=== PATIENT | female | born 1935 | race Caucasian/White ===

== ENCOUNTER 2016-09-19 16:30 | Inpatient (IN) | payer MEDICARE, OTHER ==
[~2016-09-19] VITALS: Ht 149.9 cm; Wt 45.1 kg
--- NOTE | ~2016-09-19 | DS ---
PATIENT'S NAME: [facility] AGE: 81 Y [address] ROOM: [place] [address] LOCATION: GPCU ADMIT DATE: 09/19/2016 Discharge Summary DISCHARGE DATE: 09/22/2016 FAMILY PHYSICIAN: Earnest Garber MD ATTENDING PHYSICIAN: Matt Eduardo PRINCIPAL DISCHARGE DIAGNOSIS: Metastatic cancer, unknown primary, possibly colon. SECONDARY DIAGNOSES: 1. Anemia secondary to blood loss. 2. Congestive heart failure. 3. Peripheral edema. 4. Abdominal pain. 5. Aortic stenosis. CONSULTATIONS: 1. Gastroenterology, Dr. Templeton, on 09/20/2016 for suspected colon cancer. 2. [facility] Cardiology due to CHF. 3. Oncology due to concern for metastatic cancer with imaging indicative of mets to the liver. 4. Palliative Care. RADIOGRAPHIC STUDIES: CT of the abdomen and pelvis with contrast showed mild to moderate bilateral effusions and diffuse metastatic disease in the liver, questionable thickening of the sigmoid colon, diverticulosis, single borderline enlarged retroperitoneal node, mild free fluid, mild to moderate bilateral pleural effusions, evidence of prior cholecystectomy and hysterectomy. BRIEF SUMMARY: Ms. Cooper is an 81-year-old, female who was admitted to our hospital after she presented to the [facility] with a 3- day history of dizziness associated with dyspnea on exertion. She reported 4- pillow orthopnea and increasingly limited ambulation and leg swelling and paroxysmal nocturnal dyspnea. She has been having pressure-like chest pain radiating to her back, precipitated by exertion and relieved by rest, and this has been going on for many weeks. The patient was admitted to inpatient. She is noted to have a history of aortic stenosis, for which she had undergone valvuloplasty in the past. She was gently hydrated and consultations proceeded as above. Because of evidence of a metastatic cancer, given a 40-pound weight loss in the last year, difficulty eating, poor appetite in addition due to the fragility of the patient's status and the fact that she probably would not PATIENT'S NAME: [facility] AGE: 81 Y [address] ROOM: [address] [address] LOCATION: GPCU ADMIT DATE: 09/19/2016 Discharge Summary DISCHARGE DATE: 09/22/2016 FAMILY PHYSICIAN: Earnest Garber MD ATTENDING PHYSICIAN: Matt Eduardo tolerate colonoscopy and further evaluation, after all the evaluations above, it was decided the patient is appropriate for palliative care and hospice. The patient was initially extremely resistant and fearful, but after good and consistent care from the Palliative Care nurse, evaluation by Dr. Live who is already familiar with the family, the patient was agreeable to be discharged home on hospice. Prior to discharge, she was transfused with 2 units of packed red cells, one on 09/20 and one on 09/22 for severe anemia. INSTRUCTIONS AT DISCHARGE: 1. Hospice was to be initiated as soon as possible. 2. Follow up with the PCP, Dr. Garber in a week. 3. Diet and activity as tolerated. MEDICATIONS AT TIME OF DISCHARGE: 1. Clopidogrel 75 mg p.o. daily. 2. Hydrocodone 1 tab every 4 hours p.r.n. 3. Metoprolol 25 mg p.o. daily. 4. Alprazolam 0.25 mg p.o. b.i.d. 5. Lasix 40 mg p.o. daily. 6. Fluticasone p.r.n. 7. Diclofenac topical gel for arthritis as needed. 8. Docusate 100 mg q.h.s. CONDITION AT DISCHARGE: Fair with a poor prognosis. This discharge required less than 30 minutes and was greatly facilitated by Dr. Live help. BIANCA LAWTON MD LM/modl /[id number] CC: Priscilla Live MD d: 10/22/16 0251 t: 11/01/161809, DISCHARGE SUMMARY
--- NOTE | ~2016-09-19 | HP ---
PATIENT'S NAME: NELI PAUL [facility] AGE: 81 Y [address] ROOM: [place] [address] LOCATION: GPCU ADMIT DATE: 09/19/2016 History & Physical DISCHARGE DATE: FAMILY PHYSICIAN: PHYSICIAN, UNKNOWN ATTENDING PHYSICIAN: GHULAM LOPEZ DATE OF SERVICE: CHIEF COMPLAINT: Dizziness. HISTORY OF PRESENT ILLNESS: An 81-year-old lady with a past medical history of aortic valvuloplasty in 2015, coronary artery disease, status post stenting, atrial fibrillation, status post ablation and pacemaker placement, anxiety, iron deficiency anemia who presented to [facility] with dizziness, which started 3 days ago on exertion. She did not experience any fall. On my encounter, she stated that she had been really short of breath for the past 3 days that she cannot lie down flat and have to use 4 pillows to make herself comfortable. Her ambulation is severely limited because of the shortness of breath; and in addition, she also complained of increasing leg swelling. She also endorsed having PND. On further inquiry, she said she has been having chest pain right across in the center, pressure-like, radiates to the back, brings on by exertion, and relieved by rest. It had been going on for many weeks now. Not associated with any diaphoresis. On further inquiry, she complained of weight loss as well as poor appetite and constipation. She denied having any burning on urination. REVIEW OF SYSTEMS: All the systems reviewed and were negative except what is mentioned in the HPI. PAST MEDICAL HISTORY: Coronary artery disease, status post stenting, hypertension, osteomyelitis, anxiety, aortic stenosis, status post valvuloplasty in July 2015, iron deficiency anemia, PAF on Xarelto, and history of DVT. MEDICATIONS: Medications are being reconciled right now. ALLERGIES: THE PATIENT IS ALLERGIC TO SULFA MEDICATIONS. SOCIAL HISTORY: Never a smoker. Lives in [place] with her son. PATIENT'S NAME: NELI PAUL [facility] AGE: 81 Y [address] ROOM: [place] [address] LOCATION: GPCU ADMIT DATE: 09/19/2016 History & Physical DISCHARGE DATE: FAMILY PHYSICIAN: PHYSICIAN, UNKNOWN ATTENDING PHYSICIAN: KHALID,PARMAR A FAMILY HISTORY: Family history was significant for lung cancer, myocardial infarction, as well as CVA in brother. PHYSICAL EXAMINATION: VITAL SIGNS: Blood pressure 153/76, 16, 82, and 96% on 2 L of oxygen. GENERAL: In mild acute distress due to shortness of breath. Alert and oriented x3. Hard of hearing. HEENT: Head: Atraumatic, normocephalic. Eyes: Nonicteric. No pallor. Oropharynx: Moist mucous membranes. CARDIOVASCULAR: S1, S2. Systolic ejection murmur at the aortic region radiating to the carotids, elevated JVD, +4 extremity edema. RESPIRATORY: Equal air entry bilaterally. No crepitation or expiratory wheezes heard. ABDOMEN: Soft, nontender, nondistended. Bowel sounds are present. EXTREMITIES: A 3+ extremity edema. No clubbing or cyanosis noted. Fungal infection of the toenail noted. PSYCH: Anxious and depressed mood. NEUROLOGIC: Cranial nerves 2 through 12 are intact. No motor or sensory deficits. MUSCULOSKELETAL: No muscle tenderness or swelling noted. LABORATORY DATA: EKG from the outside facility did show paced ventricular rhythm. One set of troponin was negative at [facility]. Chest x-ray was done, which was largely unremarkable for any acute findings. Physician over there was concerned for possibility of DVT and went ahead and do the CAT scan of the chest PE protocol, which was negative, but incidentally there was multiple mets noted in the liver. Further labs include hemoglobin of 8.4, white count of 12.9, and platelets 291. Sodium 142, potassium 4.8, chloride 109, bicarb 21, BUN 14, creatinine 0.9, calcium 9.0, BNP 564, and alkaline phosphatase was elevated at 375. AST and ALT were 93 and 45 respectively. Bilirubin is elevated at 1.2. INR was 2.6. The patient had a colonoscopy done in 2013. ASSESSMENT: 1. Exertional angina. 2. Congestive heart failure, acute exacerbation. 3. Severe aortic stenosis, symptomatic. 4. Severe protein-calorie malnutrition. 5. Numerous liver metastases. 6. Coronary artery disease. 7. Anxiety. 8. Iron-deficiency anemia. 9. Paroxysmal atrial fibrillation on Xarelto. PATIENT'S NAME: NELI PAUL [facility] AGE: 81 Y [address] ROOM: [place] [address] [facility] ADMIT DATE: 09/19/2016 History & Physical DISCHARGE DATE: FAMILY PHYSICIAN: PHYSICIAN, UNKNOWN ATTENDING PHYSICIAN: GHULAM LOPEZ PLAN: We are going to admit this patient to inpatient. Her dyspnea and heart failure is secondary to aortic stenosis for which she did undergo valvuloplasty in the past. At this point, we are going to diurese her gently given her good blood pressures and try to make her comfortable with some morphine as well. Cardiology consult will be placed and had been called. Given her liver metastases, we are going to get abdominal as well as pelvic CT scan to look for primary source of malignancy. Given the current scenario, we will get palliative care on-board early. On discussion with Cardiology, given that she has liver metastases, she would not be a candidate for valve replacement at this point. We will diurese her tonight and see how she does in the morning in terms of urine output and her clinical symptoms. We will get a procalcitonin levels given mildly elevated white count, but there is no focus of infection identified at this point. SCDs for DVT prophylaxis and plus she is on Xarelto. Code status was discussed with the patient and the patient is DNR/DNI. MD ROQUE QUEVEDO/kurtis /[id number] D: [id number] T: [id number] HISTORY & PHYSICAL
--- NOTE | ~2016-09-19 | CON ---
PATIENT'S NAME: NELI PAUL [facility] AGE: 81 Y [address] ROOM: [id number] [place], [place] [address] LOCATION: GPCU ADMIT DATE: 09/19/2016 Consultation DISCHARGE DATE: 09/22/2016 FAMILY PHYSICIAN: Earnest Garber MD ATTENDING PHYSICIAN: GHULAM LOPEZ DATE OF CONSULTATION: 09/20/2016 REFERRING PHYSICIAN: Hal Nash MD REFERRING PROVIDER: Florencia Shaw MD. REASON FOR CONSULTATION: Liver metastatic disease, rule out primary. HISTORY OF PRESENT ILLNESS: This is a pleasant elderly 81-year-old female with past medical history significant for aortic valvuloplasty in 2016; coronary artery disease, status post stenting; atrial fibrillation, severe aortic stenosis, status post ablation and pacemaker placement; anxiety; iron deficiency anemia. The patient presented to the [facility] with dizziness, that began 3 days ago on exertion. She did not experience any fall. She stated that she has had shortness of breath for the past few days. Her family is at bedside during our evaluation. They do state that she has lost approximately 40 pounds in the last year. She also complains of generalized "stomach problems" over the past year. She does have some abdominal discomfort that "feels like a vice around her abdomen." The patient states that this has been going on for numerous weeks. She also complains of a poor appetite as well as constipation. The patient denies any chest pain or chest pressure on evaluation. During workup on presentation, she did undergo a CT abdomen and pelvis on 09/20/2016 showing diffuse hepatic metastatic disease with a primary site is not certain, questionable thickening in the sigmoid colon with diverticulosis, single borderline enlarged retroperitoneal node, mild-to- moderate bilateral pleural effusions. We were asked to see in consultation for possible colonoscopy as well as liver metastatic disease. PAST MEDICAL HISTORY: Coronary artery disease, status post stenting; hypertension; osteomyelitis; anxiety; severe aortic stenosis, status post valvuloplasty in July 2015; iron deficiency anemia; PAF, on Xarelto; and history of DVT. PAST SURGICAL HISTORY: , cholecystectomy, cataract, cardiac stents x2, both knee scopes, peripheral stent to the right leg, pacemaker. No recent history of colonoscopy. PATIENT'S NAME: CHRISTIANO PAULA Riya [facility] AGE: 81 Y [address] ROOM: [place] [address] LOCATION: GPCU ADMIT DATE: 09/19/2016 Consultation DISCHARGE DATE: 09/22/2016 FAMILY PHYSICIAN: Earnest Garber MD ATTENDING PHYSICIAN: GHULAM LOPEZ SOCIAL HISTORY: The patient denies any smoking. She lives in [place] with her son. FAMILY HISTORY: Significant for lung cancer, myocardial infarction as well as CVA in the patient's brother. ALLERGIES: SULFA. CURRENT MEDICATIONS: Please refer to the medication administration record. REVIEW OF SYSTEMS: A 10-point review of systems was completed. All were negative except for those identified in the history of present illness. PHYSICAL EXAMINATION: GENERAL: Very pleasant, elderly 81-year-old female, lying in bed, who appears to be in no acute distress. VITAL SIGNS: Temperature 98.0, pulse 66, respirations 22, blood pressure 124/60, oxygen saturation 100% on room air. SKIN: [place], warm, and dry. No jaundice HEENT: Head is normocephalic and atraumatic. Pupils equal, round, and reactive to light. Sclerae clear. Nonicteric. Oral mucosa is pink and moist. No thyromegaly. NECK: Soft and supple. CARDIOVASCULAR: Regular. Normal S1, S2. Systolic ejection murmur heard. Elevated JVD. RESPIRATORY: Respirations even and unlabored. LUNGS: Clear to auscultation. ABDOMEN: Soft, nontender, nondistended. Bowel sounds positive x4 quadrants. MUSCULOSKELETAL: No muscle weakness or atrophy. EXTREMITIES: 3+ extremity edema noted to bilateral lower extremities. NEUROLOGICAL: Slightly anxious, though appropriate during our interview. LABS AND DIAGNOSTICS: White blood cell count 9.8, hemoglobin of 7.4, hematocrit of 24.6, and platelets of 223. Chemistry panel includes a glucose of 76, BUN of 13, creatinine 1.0, sodium 145, potassium 4.5, chloride of 113, CO2 of 23, procalcitonin is 0.25. CT abdomen and pelvis shows diffuse hepatic metastatic disease. Questionable thickening in the sigmoid colon. Single borderline enlarged retroperitoneal PATIENT'S NAME: NELI PAUL [facility] AGE: 81 Y [address] ROOM: [place] [id number] [facility] AD[facility] DATE: 09/19/2016 Consultation DISCHARGE DATE: 09/22/2016 FAMILY PHYSICIAN: Earnest Garber MD ATTENDING PHYSICIAN: GHULAM LOPEZ node. Mild free fluid. Mild to moderate bilateral pleural effusions. Cholecystectomy and hysterectomy. ASSESSMENT AND PLAN: Again, this is a very pleasant, elderly 81-year-old female, who was admitted with dizziness. The patient underwent a CT abdomen and pelvis showing a liver metastatic disease with unknown primary, likely possible colon primary as there was mild thickening noted in the colon on CT. CT scan was reviewed with Dr. Quang Gill as no obstructive lesion is noted per CT. At this time, we would appreciate Oncology consult regarding metastatic liver disease to evaluate whether colonoscopy would provide more information for treatment and diagnosis versus a possible liver biopsy. We will work in collaboration with Oncology pending their recommendations for further recommendations. Thank you for this consult and allowing us to participate in the care of this patient. ROGERS SALDIVAR APRN FOR HAL NASH MD MMF/modl /[id number] d: 09/20/16 2314 t: 09/24/16 1643, CONSULTATION REPORT
--- NOTE | ~2016-09-19 | CON ---
PATIENT'S NAME: NELI PAUL [facility] AGE: 81 Y [address] ROOM: [place] [address] LOCATION: GPCU ADMIT DATE: 09/19/2016 Consultation DISCHARGE DATE: FAMILY PHYSICIAN: Earnest Garber MD ATTENDING PHYSICIAN: GHULAM EDUARDO DATE OF CONSULTATION: 09/20/2016 LOCATION: [place] [address]. REFERRING PHYSICIAN: Ghulam Eduardo M.D. This is a Palliative Care referral for goals of care and patient and family support. HISTORY OF PRESENT ILLNESS: This 81-year-old female came in with shortness of breath and dizziness. She has a past medical history of aortic valvuloplasty in 2015 and coronary artery disease with stenting and atrial fibrillation, on Xarelto. She also has pacemaker placement, history of depression and anxiety. She presented to the [facility] with dizziness, increasing shortness of breath, and weight loss of about 40 pounds over the past year. She had been living at home with her son, but having more trouble breathing, not eating, had been using 4 pillows to make herself comfortable, but she was able to ambulate with a walker to the bathroom. She has also had increased swelling in her lower legs. No nausea or vomiting. Denies any pain or discomfort. Very fatigued with just walking back and forth to the bathroom. No history of constipation or diarrhea. Son states her stools have been darker than usual. Had been having abdominal pain, for which she has been taking a lot of hydrocodone per her son, but denies any abdominal pain now. PAST MEDICAL HISTORY: Coronary artery disease, status post stenting; hypertension; osteomyelitis; anxiety; aortic stenosis, status post valvuloplasty in July 2015; iron deficiency anemia; and PAF, on Xarelto; and history of DVT. CURRENT MEDICATIONS: 1. B12, 1000 mcg every 30 days. 2. Vilazodone HCL 40 mg daily. 3. Metoprolol 25 mg daily. 4. Furosemide 40 mg daily. 5. Plavix 75 mg daily. PATIENT'S NAME: NELI PAUL [facility] AGE: 81 Y [address] ROOM: [place] [address] LOCATION: GPCU ADMIT DATE: 09/19/2016 Consultation DISCHARGE DATE: FAMILY PHYSICIAN: Earnest Garber MD ATTENDING PHYSICIAN: GHULAM EDUARDO 6. Vitamin D 5000 units daily. 7. Atorvastatin 20 mg daily. 8. Alprazolam 0.25 mg b.i.d. 9. Acetaminophen or [place] 5/325 every 4 hours p.r.n. for pain. 10. Fluconazole 2 sprays daily p.r.n. 11. Diflucan sodium daily, topical. 12. Ipratropium bromide inhalations every 6 hours p.r.n. 13. MiraLAX 17 grams p.r.n. for constipation. 14. Morphine 1 mg every 3 hours IV. 15. Docusate sodium 100 mg b.i.d. ALLERGIES: SULFA. SOCIAL HISTORY: Lives at home with her son. Has 5 children, but has been estranged with all the other children except her son lives in [place]. She is a . about 5 years ago of lung cancer. She used to work at [employer]. FAMILY HISTORY: Significant for lung cancer, heart problems, and CVA in her brother. REVIEW OF SYSTEMS: A 10-point review of systems was done and is negative except as mentioned in HPI and listed below. RESPIRATORY: Some shortness of breath with exertion. No shortness of breath at rest. Had been unable to lie flat in bed. GI: Stools have been dark lately, no blood noted. Decreased appetite with weight loss of about 40 pounds over the past year. Unable to eat much, decreased in appetite. NEURO: Some dizziness and weakness and fatigue. PSYCH: Does have a history of severe depression and anxiety per her son. Positive for fatigue and loss of energy. PHYSICAL EXAMINATION: GENERAL: This is a frail 81-year-old female in no acute distress. VITAL SIGNS: Temperature 97.9, pulse 63, respirations 23, blood pressure 126/60, and O2 saturation is 97%. She is 4 feet and 11 inches. Weight is 93 pounds with a BMI of 19. GENERAL: Alert, oriented, in no acute distress. SKIN: Warm and dry. Color pale. HEENT: Normocephalic and atraumatic. Sclerae are nonicteric. Conjunctivae pale, pink. Mouth is pink and slightly dry. Nose, pink and moist without exudate. PATIENT'S NAME: NELI PAUL [facility] AGE: 81 Y [address] ROOM: [id number] [place] [address] [facility] AD[facility] DATE: 09/19/2016 Consultation DISCHARGE DATE: FAMILY PHYSICIAN: Earnest Garber MD ATTENDING PHYSICIAN: GHULAM EDUARDO LYMPHS: No cervical adenopathy or thyromegaly. RESPIRATORY: Clear and diminished bilaterally. Breath sounds even and regular. CARDIAC: S1 and S2. Elevated JVP. 4+ pitting edema in lower extremities bilaterally. ABDOMEN: Soft, nontender, and nondistended. Positive bowel tones. No hepatosplenomegaly. MUSCULOSKELETAL: Appropriate range of motion. Decreased strength in lower extremities. EXTREMITIES: No cyanosis. PSYCH: Anxious on current condition. Palliative performance scale is 40% mainly in bed, unable to do most activity, extensive disease, total care, reduced intake, and conscious level is full with periods of drowsiness. IMPRESSION: Dyspnea, emotional distress, and anorexia. PLAN: 1. Discussion of chronic condition. Met with the patient and discussed her understanding of talking with the senior treasury consultant and overall condition. I phoned son, Brian, who is her medical power of privacy attorney, and had the senior treasury consultant talk with son on patient's cardiology condition. Son came up later in the afternoon. Dr. Shaw, hospitalist, explained results of the CT of the abdomen and pelvis, prognosis, and overall condition. Answered questions and concerns. 2. Code status and advanced directives. The patient is currently a DO NOT RESUSCITATE/DO NOT INTUBATE. Son states the patient does have a copy of advance directive. Did obtain a copy of advance directive from the [facility]. Son is her medical power of privacy attorney and wishes are noted on the advance directive. Gave a copy to the patient's granddaughter, Christiane, whom she wanted to know her condition as well. If she had questions, patient stated that it was okay to give her information. GOALS OF CARE: 1. Talk with doctors on her current condition. 2. Talk with the oncologist to see if there is any possibility of any treatment goals of chemotherapy or biopsy. 3. She wants to see her grandchildren and would like to talk to her friend, Andie. Did contact Andie by phone and let her talk to the patient in [place], where she would like her son to come up and help her with some of the decision making. We did call son and he will try to get a ride to come up and be with the patient. Recommendations: Dyspnea, morphine p.r.n. was given and the patient had relieved shortness PATIENT'S NAME: NELI PAUL [facility] AGE: 81 Y [address] ROOM: [address] [address] LOCATION: GPCU ADMIT DATE: 09/19/2016 Consultation DISCHARGE DATE: FAMILY PHYSICIAN: Earnest Garber MD ATTENDING PHYSICIAN: GHULAM EDUARDO of rhett. EMOTIONAL DISTRESS: 1. Personal hide house supervisor from [place] was called and came up to see patient. 2. Active listening. OVERALL GOAL: The patient just wants to go home if no interventions and live the rest of her life with her son, who has helped her take care of her when he was dying on hospice. We will continue to support the patient and family and work on goals. Total time was 70 minutes. Thank you for allowing me to assist this patient and family. SHANON ONEAL NP FOR MD TRAV HAYES/kurtsi /[id number] d: 09/21/16 0043 t: 09/25/16 1044, CONSULTATION REPORT
--- NOTE | ~2016-09-19 | CON ---
PATIENT'S NAME: NELI APUL [facility] AGE: 81 Y [address] ROOM: [id number] [place], [place] [address] LOCATION: GPCU ADMIT DATE: 09/19/2016 Consultation DISCHARGE DATE: FAMILY PHYSICIAN: Earnest Garber MD ATTENDING PHYSICIAN: GHULAM LOPEZ REFERRING PHYSICIAN: Talisha Templeton MD REASON FOR CONSULTATION: The patient is an 81-year-old female, who has had approximately several days of increasing shortness of breath and dyspnea. She has also had some chest pain and increasing lower extremity edema. She has a history of an aortic valvuloplasty and coronary artery disease with stenting and also atrial fibrillation and a pacemaker placed. She presented to the intermittent ER for her shortness of breath and on admission was found to have a hemoglobin of 8.4, alkaline phosphatase was 375, AST 93, ALT was 45. Because of her anemia and her shortness of breath and chest pain, a PE protocol CT scan was performed. There is no evidence of a PE, however, there was multiple lesions in her liver that were noted on her scan. She was transferred here for further evaluation and treatment. On arrival here, the patient was taken off her Xarelto, which she is on for her atrial fibrillation and a remote history of a DVT. She was also found to have worsening of her anemia with a hemoglobin of 6.8. The patient has had approximately a 40-pound weight loss in the past year. Her son said last year, she was and this year she is not doing anything and just getting around with a walker around her house. He had noticed there is a significant decline in the past 3 to 6 months. The patient also states she has had some darker stools and she has had some abdominal bloating and indigestion for approximately 3 months. PAST MEDICAL HISTORY: 1. Congestive heart failure. 2. Aortic stenosis with valvuloplasty. 3. Coronary artery disease. 4. Anxiety disorder. 5. Atrial fibrillation, on Xarelto. 6. Reportedly a history of iron deficiency anemia. SOCIAL HISTORY: The patient's approximately 5 years ago with cancer. She lives with her son for the past 5 years. He is her primary caregiver and power of commercial litigation attorney. She has 3 other children, which the son reports that they have not seen their mom much if any in the past 5 years. She is currently not a smoker and she does not consume alcohol. FAMILY HISTORY: PATIENT'S NAME: NELI PAUL [facility] AGE: 81 Y [address] ROOM: [id number] [place], [place] [address] LOCATION: GPCU ADMIT DATE: 09/19/2016 Consultation DISCHARGE DATE: FAMILY PHYSICIAN: Earnest Garber MD ATTENDING PHYSICIAN: GHULAM LOPEZ She has family history of lung cancer, otherwise, unremarkable. REVIEW OF SYSTEMS: As per HPI. She denies any neurologic changes, otherwise, her 12-point review of systems is negative. PHYSICAL EXAMINATION: GENERAL: The patient is a very frail and tearful, at times sobbing, elderly female who is in no acute distress. IMAGING DATA: CT scan performed on 09/20 revealed multiple diffuse hepatic lesions consistent with metastatic disease as well as thickening in her sigmoid colon. IMPRESSION: 1. Likely metastatic disease in her liver, questionable sigmoid colon primary. 2. Anemia, likely multifactorial since her MCV is normal, although more than likely she has had some chronic blood loss with her Xarelto and had darker stools and questionable sigmoid colon lesions. RECOMMENDATIONS: I had an hour and a half talk with the patient and the family about her scans, her lab work, and the differential diagnosis. I did tell her that these lesions in her liver likely cancer and could very well have come from her colon although it is important to further diagnose her cancer with a biopsy of the liver and possibly even a colonoscopy. I told her that if this is a colon cancer oral Xeloda may be an option for her. I did tell her that it could slow down the growth of the cancer or could shrink it up, however, with her significant decrease in her performance status and her frailty, I do not think that she would likely tolerate oral Xeloda at a dose that would be helpful for her cancer. I told her that I would not be able to treat her unless we do a biopsy and strongly consider colonoscopy to get a primary site. She did ask how long she has to live, I told her it is completely a gas but she may have 3 months. However, I do worry that with her anemia and her significant decline in her performance status, it will likely be a shorter time period than that. She is adamant and tearful and stating that she just wants to go home. I told her that we could get her home possibly tomorrow with hospice and just keep her comfortable and I told her that if she was my mother then that would be what I would want for her. She actually did say that she does not want a biopsy, she just wants to go home and be comfortable. Her son who is her power of commercial litigation attorney agrees with this as well. I told her, I would try to see if I could further identify her anemia, I do PATIENT'S NAME: NELI PAUL [facility] AGE: 81 Y [address] ROOM: [place] [address] LOCATION: [facility] ADMIT DATE: 09/19/2016 Consultation DISCHARGE DATE: FAMILY PHYSICIAN: Earnest Garber MD ATTENDING PHYSICIAN: GHULAM LOPEZ think that her progressive anemia will likely cause her more issues and shorten her life expectancy, possibly more than the colon cancer itself. I will start her on some oral iron, if she tolerates that might help build up her blood and increase her performance status for the time. We will see if the hospice can come and evaluate the patient and hopefully get her home tomorrow, since that is where she really wants to be. JAHAIRA ESCUDERO MD CML/modl /[id number] d: 09/21/16 1309 t: 10/01/16 0735, CONSULTATION REPORT
[2016-09-19] MEDS ORDERED: XARELTO15 MG PO (17:53)
[2016-09-19] MEDS ORDERED: K-TAB ER20 MEQ PO (17:53)
[2016-09-19] MEDS ORDERED: VITAMIN D35000 UNI1 PO (17:53)
[2016-09-19] MEDS ORDERED: VIIBRYD40 MG PO (17:54)
[2016-09-19] MEDS ORDERED: VITAMIN B-1000 MCG/M IM (17:56)
[2016-09-19] MEDS ORDERED: LIPITOR20 M1 PO (17:56)
--- NOTE | 2016-09-19 17:56 | NUR ---
PT is 81 y/o female admit for chest pain/SOB for hospitalist. Pt alert and oriented x3 but extremely [place]. Doesn't hear at all out of R)ear. Resides at home with son. Pt came via ambulance from [facility]. Hx pacemaker,dizziness, angina,htn,murmur,stents x2,CAD,valve disease,heartburn,hiatal hernia, pneumonia,anemia,depression,anemia. Pt usually walks with walker at home. Allergy to spironolactone and sulfa. Red and yellow bracelets on.
[2016-09-19] MEDS ORDERED: LOPRESSOR25 MG PO (17:57)
[2016-09-19] MEDS ORDERED: HYDROCODON-ACE1 EAC4 PO (17:57)
[2016-09-19] MEDS ORDERED: PLAVIX75 MG PO (17:57)
[2016-09-19] MEDS ORDERED: FLONASE 50 MCG/16 GM NOSE (17:58)
[2016-09-19] MEDS ORDERED: LASIX40 MG PO (17:58)
[2016-09-19] MEDS ORDERED: XANAX0.25 MG PO (17:58)
[2016-09-19] MEDS ORDERED: COLACE100 MG PO (17:59)
[2016-09-19] MEDS ORDERED: VOLTAREN 1% GE100 GM TOP (17:59)
[2016-09-20 02:46] LABS: BILIRUBIN URINE NEGATIVE (NEGATIVE); BLOOD URINE NEGATIVE /UL (NEGATIVE); COLOR URINE YELLOW (YELLOW); GLUCOSE URINE NEGATIVE (NEGATIVE); KETONE URINE NEGATIVE (NEGATIVE); LEUKOCYTES URINE 25 /UL (NEGATIVE); NITRITE URINE NEGATIVE (NEGATIVE); PROTEIN URINE NEGATIVE (NEGATIVE); SPEC GRAVITY URINE 1.015 (1.003-1.035); TURBIDITY URINE CLEAR (CLEAR); UROBILINOGEN URINE 4 mg/dL (NORMAL)
[2016-09-20 02:59] LABS: BACTERIA URINE RARE (NEGATIVE); EPITHELIAL URINE 0-2 #/HPF (NEGATIVE); RBC URINE NEGATIVE #/HPF (NEGATIVE); RENAL EPITH URINE NEGATIVE #/HPF (NEGATIVE); WBC URINE 0-2 #/HPF (NEGATIVE)
--- NOTE | 2016-09-20 05:33 | NUR ---
Significant Event: Patient alert and oriented x3. Very hard of hearing. SBP 149-115. All other vital signs stable. On RA. Patient refused mata and lasixs for day shift. No complaints of chest pain. Cardiac enzymes negative. Bloody stool x1. Hematest per Dr. El positive. UA done. Patient SOB with activity. Morphine given x1 for air hunger and complaints of back pain. Little relief. [place] x1 given with more comfort to patient. Up to bedside commode with 1 assist pivot transfer. 2-3+ edema to bilateral legs. Calm and cooperative with all cares. Follow up: Pallitive to see today. Echo and Abdomenal Ultrasound today.
[2016-09-20 05:57] LABS: BASOPHIL % 0.4 %; EOSINOPHIL # 0.4 K/uL (0.0-0.5); HEMATOCRIT 22.3 % (30.0-46.0); IMMATURE GRANULOCYTE # 0.1 K/uL (0.0-0.3); IMMATURE GRANULOCYTE % 0.5 %; LYMPHOCYTE # 1.5 K/uL (0.8-4.0); LYMPHOCYTE % 15.7 %; MCH 29.6 pg (27.0-34.0); MCHC 30.5 gm/dL (32.0-36.5); MONOCYTE # 1.2 K/uL (0.0-1.0); MONOCYTE % 12.7 %; MPV 10.6 fl (9.4-12.4); NEUTROPHIL # (ANC) 6.5 K/uL (1.8-7.8); NEUTROPHIL % 66.7 %; NRBC % 0 /100WBC (0-0.00); PLATELET COUNT 223 K/uL (150-450); WBC 9.8 K/uL (4.0-11.0)
[2016-09-20 06:00] LABS: HEMOGLOBIN 6.8 g/dL (10.0-15.0)
[2016-09-20 06:11] LABS: ANION GAP 13.5 (10.0-19.0); CALCIUM 7.5 mg/dL (8.5-10.5); POTASSIUM 4.5 mMol/L (3.7-5.1)
[2016-09-20 08:09] LABS: HEMATOCRIT 24.6 % (30.0-46.0)
[2016-09-20 08:10] LABS: HEMOGLOBIN 7.4 g/dL (10.0-15.0)
--- NOTE | 2016-09-20 11:49 | NUR ---
Stopped by to review Siomara's chart and CHASITY Lindsay with [facility] was there. She tells me that Siomara lives at home with her son in [place] and it is her plan to return there. Doctors have told Siomara that she is not a surgical canidate so Angélica has brought up the option of her going home with support from [facility] to both Siomara and her son, Brian. Angélica tells me that she has talked with Brian today and he is trying to find a ride up to the hospital to see his mom later this afternoon. No for sure decision has been made about [facility] coming on board yet, but Angélica did tell me that she faxed the initial referral into them this morning and they will be able to accept when she is ready to dismiss if that is the route that Siomara is wanting to go. Angélica states she has talked with Siomara this morning a few times and she is wanting to hear from doctors first before saying she is fine with going home with Hospice. Angélica tells me she will update me later this afternoon in reguards to what she decides. She was also going to check to make sure the [facility] could accept over the weekend if Siomara was cleared for discharge at that time. In reviewing Siomara's chart, I do see that she lives at home with son and uses a FWW to get around with at home. CM to continue to follow and assist.
--- NOTE | 2016-09-20 17:03 | NUR ---
Shift Summary: Patient alert and oriented x 3. Patient very hard of hearing. Patient very emotional today. Palliative care seen today. Family at bedside. Patient up and to the bathroom with walker and gait belt. Bilateral lower extremities 2+ edema. Lungs clear and diminished. Hold xarelto per Dr. Anu. [place] ([facility]) okay to give information to. 490 total intake; 675 total output. HR paced at 60. 1 unit pRBC's infusing now. Follow up: Oncology to see in AM.
--- NOTE | 2016-09-21 04:22 | NUR ---
Significant Event: PATIENT A/0 X 3, CONTINUES TO BE VERY DEPRESSED ABOUT HER CURRENT SITUATION. ALL VSS ON RA, AFEBRILE. OUT OF BED VERY FREQUENTLY TO BEDSIDE COMMODE. DOES FALL BACK ASLEEP EASILY. NO COMPLAINTS OF PAIN. Follow up: ONCOLOGY CONSULT AND POSSIBLE LIVER BIOPSY AT SOME POINT.
[2016-09-21 05:56] LABS: BASOPHIL % 0.4 %; EOSINOPHIL # 0.4 K/uL (0.0-0.5); EOSINOPHIL % 4.1 %; HEMATOCRIT 24.5 % (30.0-46.0); IMMATURE GRANULOCYTE # 0.1 K/uL (0.0-0.3); IMMATURE GRANULOCYTE % 0.7 %; LYMPHOCYTE # 1.6 K/uL (0.8-4.0); LYMPHOCYTE % 16.6 %; MONOCYTE # 1.3 K/uL (0.0-1.0); MONOCYTE % 13.8 %; MPV 10.9 fl (9.4-12.4); NEUTROPHIL # (ANC) 6.2 K/uL (1.8-7.8); NEUTROPHIL % 64.4 %; NRBC % 0 /100WBC (0-0.00); PLATELET COUNT 213 K/uL (150-450); RBC 2.67 M/uL (3.00-5.00); WBC 9.7 K/uL (4.0-11.0)
[2016-09-21 06:02] LABS: HEMOGLOBIN 7.9 g/dL (10.0-15.0); MCH 29.6 pg (27.0-34.0); MCHC 32.2 gm/dL (32.0-36.5); MCV 91.8 fl (83.0-98.0)
[2016-09-21 06:09] LABS: ALBUMIN 2.1 gm/dL (3.5-5.0); ANION GAP 16.2 (10.0-19.0); CALCIUM 7.7 mg/dL (8.5-10.5); CREATININE 0.9 mg/dL (0.5-1.1); PHOSPHORUS 3.1 mg/dL (2.5-4.9); POTASSIUM 4.2 mMol/L (3.7-5.1)
--- NOTE | 2016-09-21 19:24 | NUR ---
PATIENT UP TO BR W/ 1 ASSIST. PATIENT USED CALL LIGHT APPROPRIATELY, FAMILY AT BEDSIDE MOST OF DAY. VSS, SATS HIGH 90'S ON RA. PLAN FOR DISMISSAL TOMORROW ON HOSPICE.
--- NOTE | 2016-09-22 04:10 | NUR ---
Significant Event: Patient A/Ox3. VSS on RA. Up minimal assist ot bathroom. Patient is very tearful. Dr. Shaw spoke to the patient about administering another unit of PRBC last night, but patient requested that she wait until morning. Scheduled for 0800. Unit of blood ready in lab when needed. Follow up: Hang blood this morning. Home today or tomorrow on hospice
--- NOTE | 2016-09-22 17:55 | NUR ---
DISMISSAL NOTE: AOx3, tearful today re: diagnosis and leaving behind loved ones and her cats. Tachypneic at times, SBP 120s-130s, VS otherwise WNL on room air. Decreased appetite but did eat some breakfast. Dressing remains intact to R) upper arm skin tear. 1 unit PRBCs infused as ordered. Ambulates to restroom with 1PA and tolerates well. BM x1. Family arrived and were comforting to patient. Visited by phone with Angélica from [facility] regarding patient's dismissal time. Patient stated repeatedly she wanted to go home. Family states they are comfortable taking her home. Dressed and transported via wheelchair.
== END 2016-09-22 14:59 | disposition hospice, home (50) | DRG 302 ==
LOC: GPCU 16:41
PROVIDERS: Family Medicine; Internal Medicine; ADMIT Internal Medicine
PROC: 30233N1 Transfusion of Nonautologous Red Blood Cells into Peripheral Vein, Percutaneous Approach (ICD-10-PCS; principal; 2016-09-20)
DX: I25.118 Atherosclerotic heart disease of native coronary artery with other forms of angina pectoris (principal); E43 Unspecified severe protein-calorie malnutrition; C78.7 Secondary malignant neoplasm of liver and intrahepatic bile duct; I11.0 Hypertensive heart disease with heart failure; I48.0 Paroxysmal atrial fibrillation; I50.9 Heart failure, unspecified; C80.1 Malignant (primary) neoplasm, unspecified; Z68.1 Body mass index [BMI] 19.9 or less, adult; F41.9 Anxiety disorder, unspecified; D50.9 Iron deficiency anemia, unspecified; I35.0 Nonrheumatic aortic (valve) stenosis; M19.90 Unspecified osteoarthritis, unspecified site; Z95.0 Presence of cardiac pacemaker; Z66 Do not resuscitate; Z51.5 Encounter for palliative care
CPT/HCPCS: J1940; J2270; J3420; J7030; J7050; P9016

== ENCOUNTER 2016-09-30 13:30 | Inpatient (IN) | payer MEDICARE, OTHER ==
[~2016-09-30] VITALS: Ht 139.7 cm; Wt 45.1 kg
--- NOTE | ~2016-09-30 | CON ---
PATIENT'S NAME: NELI PAUL [facility] AGE: 81 Y [address] ROOM: [place] [address] LOCATION: TU ADMIT DATE: 09/30/2016 Consultation DISCHARGE DATE: 10/04/2016 FAMILY PHYSICIAN: Earnest Garber MD ATTENDING PHYSICIAN: Rogelio Cheung DATE OF CONSULTATION: 10/03/2016 LOCATION: [facility] 62. REFERRING PHYSICIAN: Jhonatan El MD This is a palliative care referral for patient and family support and goals of care. HISTORY OF PRESENT ILLNESS: This 81-year-old female was admitted on 09/30/2016 due to falling at home and having left hip pain. She had previously been in the hospital and admitted on 09/19/2016 and was found to have multiple lesions on her liver. She has a past medical history of aortic valvuloplasty in 2015, severe coronary artery disease with stenting, and atrial fibrillation. She has a history of anxiety and depression, had a 40-pound weight loss. CT was done, and that is when she was found to have multiple lesions on her liver. Her liver enzymes were elevated. Alkaline phosphatase was 375, AST was 93, and ALT was 45. The patient had fallen where she had been living at home with her son and was on hospice care. Son and the patient had decided to have hip repaired. The patient had a recent decline in condition. Today, on date of consult, white count had elevated and more lethargic, and she was hypotensive. With the patient's previous history of liver metastasis, possible colon cancer, and recent hospice, goals of care were needed to be discussed with the family. The patient currently is lying in bed. Does open eyes, but no verbal response. No discomfort noted. No grimacing or moaning. No shortness of breath. No nausea or vomiting. Family at bedside. PAST MEDICAL HISTORY: Coronary artery disease, status post stenting; hypertension; osteomyelitis; anxiety; aortic stenosis, status post valvuloplasty in July 2015; iron deficiency anemia; PAF, on Xarelto; and history of DVT. PATIENT'S NAME: NELI PAUL [facility] AGE: 81 Y [address] ROOM: [place] [address] LOCATION: [facility] ADMIT DATE: 09/30/2016 Consultation DISCHARGE DATE: 10/04/2016 FAMILY PHYSICIAN: Earnest Garber MD ATTENDING PHYSICIAN: Rogelio Cheung MEDICATIONS: 1. Vilazodone hydrochloride 40 mg daily. 2. Xanax 0.25 mg b.i.d. 3. Dicyclomine 20 mg a.c. and h.s. 4. Tylenol p.o. 500 mg every 6 hours p.r.n. 5. Acetaminophen 500 mg q.i.d. 6. Plavix 75 mg daily. 7. Docusate sodium 100 mg b.i.d. 8. Lovenox 30 mg subcu. 9. Famotidine 20 mg daily. 10. Zosyn 3.375 mg IV b.i.d. 11. Bisacodyl 10 mg rectally daily p.r.n. constipation. 12. Haloperidol 1 mg every 6 hours p.r.n. 13. Hyoscyamine 0.125 mg sublingual every 4 hours p.r.n. increased respiratory secretions. 14. Lorazepam 0.5 mg p.o. sublingual every 6 hours p.r.n. anxiety. 15. Magnesium hydroxide 30 mg p.o. p.r.n. constipation. 16. Morphine sulfate 5 mg p.o. every 3 hours p.r.n. dyspnea or pain. 17. Nitroglycerin 0.4 mg sublingually every 4 hours p.r.n. chest pain. 18. Ondansetron 4 mg IV every 6 hours p.r.n. nausea. 19. MiraLAX 17 g p.o. every day. ALLERGIES: SULFA. SOCIAL HISTORY: She had been living at home with her son. Has 5 children. Son is her medical power of attorney general. She is . 5 years ago of lung cancer. Used to work at [employer] FAMILY HISTORY: Lung cancer, heart problems, and CVA. REVIEW OF SYSTEMS: Ten-point review of systems was done and is negative except as mentioned in the HPI. VITAL SIGNS: 98.1, pulse 64, respirations 17, blood pressure 91/54, and O2 saturation is 95%. Weight is 99 pounds, and she is 4 feet 11 inches. GENERAL: Lethargic, in no acute distress. SKIN: Warm and dry. Color pale. HEENT: Head: Normocephalic and atraumatic. Sclerae are nonicteric. Conjunctivae are pale, pink. Mouth is pink and moist without exudate. LYMPHATIC: No cervical adenopathy or thyromegaly. RESPIRATORY: Clear to auscultation bilaterally. Breath sounds even and PATIENT'S NAME: NELI PAUL [facility] AGE: 81 Y [address] ROOM: [place] [address] LOCATION: [facility] ADMIT DATE: 09/30/2016 Consultation DISCHARGE DATE: 10/04/2016 FAMILY PHYSICIAN: Earnest Garber MD ATTENDING PHYSICIAN: Rogelio Cheung regular throughout. CARDIAC: S1 and S2 without murmurs. 1+ pitting edema bilaterally. ABDOMEN: Soft and nontender. Positive bowel tones. No hepatosplenomegaly. EXTREMITIES: No cyanosis or deformities. PSYCHIATRIC: She has a history of depression and anxiety. IMPRESSION: 1. Emotional distress with family. 2. Anxiety. 3. Pain. PLAN: Met with the patient. The patient is unresponsive. Son Brian was present and daughter Scout. Discussed recent decline in condition, increased white count, possibly going septic, hypotensive, and their talk with Dr. El that condition was declining. The patient was scheduled to go to [facility] on skilled care tomorrow, but is declining. Discussed options and goals of care. Going comfort cares with the patient's history versus continuing treatment. GOALS OF CARE: 1. Continue treatments, but if the patient declines, just keep the patient comfortable. 2. Call Pastoral Care for . I did call head sawyer automatic, and black top paver operator was up from [place]. 3. To re-evaluate condition and going to [place] on hospice cares versus staying here depending on the patient's condition in the morning. We will meet with family about [address] El and Care Management. RECOMMENDATIONS: 1. Left hip pain. Roxanol 5 mg every 6 hours ordered. 2. Anxiety. The patient is on Xanax. May be unable to take, but does have Ativan sublingual. 3. Emotional distress. Active listening for family. Spiritual support was given. Total time was 60 minutes, with 50 minutes for counseling and coordination of care. Thank you for allowing me to assist this patient and family. SHANON ONEAL NP FOR MD TRAV HAYES/kurtis PATIENT'S NAME: NELI PAUL [facility] AGE: 81 Y [address] ROOM: [place] [address] LOCATION: [facility] ADMIT DATE: 09/30/2016 Consultation DISCHARGE DATE: 10/04/2016 FAMILY PHYSICIAN: Earnest Garber MD ATTENDING PHYSICIAN: Rogelio Cheung /[id number] d: 10/04/16 1406 t: 10/14/16 1425, CONSULTATION REPORT
--- NOTE | ~2016-09-30 | DS ---
PATIENT'S NAME: NELI [facility]UL [facility] AGE: 81 Y [address] ROOM: [id number] [place], [place] [address] LOCATION: [facility], [place] ADMIT DATE: 09/30/2016 Discharge Summary DISCHARGE DATE: 10/04/2016 FAMILY PHYSICIAN: Earnest Garber MD ATTENDING PHYSICIAN: Rogelio Cheung PRINCIPAL DIAGNOSES: 1. Left hip fracture, intertrochanteric, status post IM nailing. 2. Sepsis. 3. Coronary artery disease. 4. Severe aortic stenosis. 5. Paroxysmal atrial fibrillation. 6. Acute blood loss anemia. 7. Encephalopathy. 8. Liver metastasis. 9. Chronic diastolic heart failure. 10. Pain management. 11. Hospice care. 12. Acute kidney injury. HOSPITAL COURSE: Please reference any of the admitting data to the history and physical as dictated by Dr. Rogelio Cheung. Briefly, this is an 81-year-old female, who was recently hospitalized for blood loss anemia and workup for her severe aortic stenosis, was found to have metastasis in the liver. The patient had elected at that time to undergo no further testing or treatment and placed on hospice care. She was at home when she had a fall suffering a left hip intertrochanteric fracture and admitted under the Hospitalist Service to further evaluate with Orthopedics. It was elected that she undergo an IM nailing. She was preoperatively optimized. Risks, benefits, and alternatives were discussed. She was given preoperative antibiotics and taken to surgery on September 30, 2016, where she had a left hip closed reduction and fracture fixation using an intramedullary nail with Dr. Marino Ramos. Please reference his operative note for further information. Postoperatively, the patient had some delirium, which seemed to improve over a 24-hour period. Her appetite was poor. Her white blood cell count was elevated, but thought to be just stress induced, reactive. By postoperative day #2, her mental state had improved. Her pain was adequately controlled. Her hemoglobin was 8.6 and felt stable to start DVT prophylaxis, Lovenox. Of important note, it was discussed with Cardiology and Orthopedics about the patient's significant history of coronary artery disease with recent stenting of a bare-metal stent in early August and necessity of antiplatelet therapy in the setting of the patient's liver metastasis, recent acute blood loss and surgery. It was elected that the patient be placed on DVT prophylaxis as well as Plavix. Plavix was then initiated on postoperative day #3 without PATIENT'S NAME: NELI [facility]UL [facility] AGE: 81 Y [address] ROOM: [id number] [place], [place] [address] LOCATION: [facility] [place] ADMIT DATE: 09/30/2016 Discharge Summary DISCHARGE DATE: 10/04/2016 FAMILY PHYSICIAN: Earnest Garber MD ATTENDING PHYSICIAN: Rogelio Cheung. However, in the next 24 hours, the patient declined, her white blood cells count increased over 20,000, her blood pressures dropped requiring IV fluid resuscitation. She appeared to be having an infectious process, so a workup was lodged showing a procalcitonin which was significantly elevated, uncertain if it was bacterial versus the cancer. She did have a positive urinalysis and was covered with Zosyn empirically. Blood cultures and urine cultures did not show anything after 1 day's growth. In that time frame, palliative care nurse practitioners were consulted in which they spoke with the family and their decision was to make the patient more comfortable and return to the [facility] under hosp[facility] care. On the day of discharge, the patient's white count had improved; however, still no source of infection. Her hemoglobin had dropped from 8.9 to 7.5. Cultures had remained negative. It was Dr. El's recommendation that the patient continue on an oral antibiotic regimen at discharge for quality of life. On discharge, her Lovenox was ceased secondary to a drop in her hemoglobin. CONSULTING PROVIDERS: 1. Dr. Marino Ramos, orthopedics. 2. Tina Monae, palliative care nurse practitioner. PROCEDURE: Dr. Marino Ramos performed a fixation of the left hip fracture on 09/30/2016. LABORATORY FINDINGS: Pertinent positive results as above. Her white blood cell count was 15,000 upon admission; however, it cleo postoperatively to 21,000 before falling to 17,000. She did have a moderate shift in her neutrophils at that time showing over 82%. Infectious workup included a lactate that was 2.8 and a procalcitonin level which was 137.43. Urine culture was obtained, although no growth at 1 day. Blood culture was obtained, there was no growth at 1 day. A urinalysis was positive with claudia, 3+ turbid urine and a specific gravity of 1.025. Leukocytes were 500, nitrites were positive, and she was spilling ketone and urobilinogen and bilirubin. The microanalysis showed a full field of white blood cells and red blood cells as well as moderate bacteria. Most recent chemistry panel revealed an acute kidney injury with a glucose of 70, a BUN of 43, a creatinine of 1.9, a sodium of 144, potassium 4.7, a chloride of 114, a CO2 of 19, a calcium of 7.0, magnesium of 2.3. RADIOLOGIC IMAGING: Preoperative chest film showed no evidence of any acute cardiopulmonary process. Preoperative left femur film showed an acute intertrochanteric left hip fracture, nondisplaced, and postoperative films showed proper reduction and fixation with placement of metallic hardware. PATIENT'S NAME: NELI PAUL [facility] AGE: 81 Y [address] ROOM: [id number] [place], [place] [address] LOCATION: [facility] [place] ADMIT DATE: 09/30/2016 Discharge Summary DISCHARGE DATE: 10/04/2016 FAMILY PHYSICIAN: Earnest Garber MD ATTENDING PHYSICIAN: Rogelio Cheung DISCHARGE MEDICATIONS: 1. Tylenol suppository 650 mg per rectum every 6 hours as needed for pain or fever. 2. Xanax 0.25 mg p.o. twice daily. 3. Plavix 75 mg p.o. every day. 4. Dicyclomine 20 mg p.o. before meals and at bedtime. 5. Colace 100 mg p.o. twice daily as needed for constipation. 6. Vilazodone 40 mg p.o. every day. 7. Acetaminophen 500 to 1000 mg p.o. every 6 hours as needed for temperature greater than 101 or mild pain. 8. Dulcolax suppository 10 mg per rectum every day as needed for constipation. 9. Haldol 1 mg p.o. every 6 hours as needed for anxiety or agitation. 10. Hyoscyamine 0.125 mg sublingual every 4 hours as needed for secretions. 11. Lorazepam 0.5 mg p.o. every 6 hours as needed for anxiety. 12. Milk of magnesia 30 mL p.o. as needed for constipation. 13. Roxanol 5 mg p.o. every 3 hours as needed for pain, prescription written. 14. Nitroglycerin 0.4 mg sublingual as directed for chest pain. 15. Voltaren 1% gel topically every day as needed for arthritis in her knees. 16. Ciprofloxacin 250 mg p.o. twice daily for 7 days. 17. Augmentin 875 mg p.o. twice daily for 7 days. DISCHARGE INSTRUCTIONS: The patient will be discharged to [facility] by ambulance, certification form was filled out. A hospice consultation was obtained. Dr. Earnest Garber will remain her primary attending. I did try to attempt to call him and left him a message. We asked that he follow up with her in the next 2 to 3 days. There is no laboratory need for followup. Code status is do not resuscitate, do not intubate. Diet, clear liquid or as tolerated. Her weightbearing status is as tolerated, no need for therapies to be added. Oxygen to be 0 to 2 L as needed for comfort. Urinary catheter will remain in place for comfort and hospice cares. Her overall discharge potential is poor. They may crush appropriate medications. The patient and family are well aware of her condition and prognosis. It was discussed in length and in depth. All questions were answered with statements of satisfaction. Total discharge time was greater than 30 minutes, collaborating with Social Work and specialist in arranging care of the patient. Thank you for allowing us to participate in the care of this patient while at [facility]. PATIENT'S NAME: NELI [facility]UL [facility] AGE: 81 Y [address] ROOM: [place] [address] LOCATION: [facility] [place] ADMIT DATE: 09/30/2016 Discharge Summary DISCHARGE DATE: 10/04/2016 FAMILY PHYSICIAN: Earnest Garber MD ATTENDING PHYSICIAN: Rogelio Cheung PAULINE HERNANDEZ APRN, APRN FOR MD MERYL CISSE/kurtis /[id number] d: t: 10/05/16 0737, DISCHARGE SUMMARY
--- NOTE | ~2016-09-30 | HP ---
PATIENT'S NAME: NELI PAUL [facility] AGE: 81 Y [address] ROOM: [id number] [place], [place] [address] LOCATION: [facility] ADMIT DATE: 09/30/2016 History & Physical DISCHARGE DATE: FAMILY PHYSICIAN: Earnest Garber MD ATTENDING PHYSICIAN: ALVARO DINERO DATE OF SERVICE: CHIEF COMPLAINT: Left hip pain status post mechanical fall. HISTORY OF PRESENT ILLNESS: This is an 81-year-old female, who lives at home with her son, currently in hospice care, just started recently about a week ago secondary to liver metastasis with possible primary carcinoma from the colon. Due to the patient's age and after seeing the oncologist and the dba developer recently, the decision per the patient and the patient's power of civil rights attorney, which is her son, all agreed not to proceed any further testing or intervention. Therefore, the patient has been in hospice care roughly started one week ago. The story is obtained from the patient and the patient's son, who lives with the patient at home. The story is that the patient usually at home, should be ambulating with a walker, but this morning when she went to the bathroom, she walked without a walker without any problem. When she was walking back from the bathroom to her bedroom, she lost her balance and tripped and fell on to the ground, landing her left hip on the ground. The fall was accidental, mechanical according to the patient. The patient denies any head trauma, denies any loss of consciousness, denies any lightheadedness, chest pain or palpitation or diaphoresis or nausea or vomiting prior to the fall. She also denies any blurry vision prior to the fall. The patient says it was purely accidental when she tripped and fell by not using walker while walking. Due to the pain in the left hip and cannot bear any weight, the patient was brought to the outside facility for further evaluation. Upon further questioning at baseline, the patient's METS score is around 4, and the patient denies any chest pain or shortness of breath on exertion or at rest. Recently in early August 2016, the patient underwent one bare-metal stent placement in the right coronary artery done at the [facility] by Dr. Carr, who is the patient's primary jboss developer for chest pain. At that time, she was diagnosed with unstable angina, and at that time, the patient also had a chronic diagnosis of severe mitral regurgitation and severe aortic stenosis. At that time, the plan was to continue aspirin indefinitely and Plavix for 1 month, and continue Xarelto for her history of paroxysmal atrial fibrillation and also history of right lower extremity DVT. However, recently, her aspirin was stopped to avoid potential bleeding risk according to the patient's son. Last time the patient took Xarelto and Plavix PATIENT'S NAME: NELI PAUL [facility] AGE: 81 Y [address] ROOM: [place] [address] LOCATION: [facility] ADMIT DATE: 09/30/2016 History & Physical DISCHARGE DATE: FAMILY PHYSICIAN: Earnest Garber MD ATTENDING PHYSICIAN: ALVARO DINERO was yesterday morning on September 29, 2016. The patient denies any GI bleeding. REVIEW OF SYSTEMS: As mentioned in the history of present illness. All other systems reviewed and negative except those mentioned in the history of present illness. PAST MEDICAL HISTORY: 1. Coronary artery disease, status post stent placed in the past. The most recent one was one bare-metal stent placed in the RCA in August 2016 at the [facility]. Medical records are in the chart, already requested and obtained. 2. History of congestive diastolic heart failure. Most recent echo was performed in August 2016 at the [facility]. The record is also in the chart. EF was more than 50% at that time, and it showed grade 3 diastolic dysfunction without any motion abnormality. Evidence of severe aortic stenosis and severe mitral regurgitation at that time. Also had evidence of pmht-yo-oydefonc pulmonary hypertension as well. I do not have the exact number of the EF given that the patient is currently in surgery, and I do not have access to the medical chart. 3. Hypertension. 4. History of severe mitral regurgitation and severe aortic stenosis, status post valvuloplasty back in July 2015. She is not a candidate for any further valve surgery given that she has a liver metastasis. No future surgery planned. 5. History of anxiety disorder. 6. History of right lower extremity DVT in the past, on Xarelto. 7. History of paroxysmal atrial fibrillation, status post cardiac ablation and a permanent pacemaker implantation in the past and currently on Xarelto. ALLERGIES: SULFA AND BENADRYL, UNKNOWN REACTION. HOME MEDICATIONS: Currently have already been reconciled, but the chart is in the surgery room right now. She is undergoing surgery right now. I do not have access. Refer to the medical chart please. SOCIAL HISTORY: The patient denies any cigarette or alcohol or illegal drug use. The patient ambulates with a walker at home, but she has not been compliant. FAMILY HISTORY: Both parents from advanced age. The patient could not remember from what cause. PATIENT'S NAME: NELI PAUL [facility] AGE: 81 Y [address] ROOM: [place] [address] LOCATION: [facility] ADMIT DATE: 09/30/2016 History & Physical DISCHARGE DATE: FAMILY PHYSICIAN: Earnest Garber MD ATTENDING PHYSICIAN: ALVARO DINERO PAST SURGICAL HISTORY: 1. Status post aortic stenosis, status post valvuloplasty back in July 2015. 2. Coronary artery disease, status post drug-eluting stents placed in the past. 3. Status post pacemaker implantation in the past. 4. Status post cardiac ablation for history of paroxysmal atrial fibrillation in the past. 5. Status post right humerus fracture surgery in the past. 6. Status post cholecystectomy. 7. Status post 5 times in the past. PHYSICAL EXAMINATION: VITAL SIGNS: At the time of my evaluation at that moment, temperature 98.3, heart rate 60, respiration 16, blood pressure 166/73, saturation 94% on room air. GENERAL APPEARANCE: Alert and oriented x3. The patient is very hard of hearing, not in distress. HEENT: Pupils are equally round and reactive to light. Extraocular muscles intact. Nasal turbinates are normal bilaterally. Moist oral mucosa. No oral thrush. NECK: No JVD. No cervical lymphadenopathy. No neck stiffness. CARDIOVASCULAR: Regular rate and rhythm. Paced rhythm. She has an obvious audible murmur about 3/6 intensity, systolic type. No rubs. No gallops. Normal S1, S2. RESPIRATORY: Clear. Chest wall is nontender to palpation. ABDOMEN: Soft, nontender, nondistended, normal bowel sounds, no hepatosplenomegaly. EXTREMITIES: +2 bilateral pitting edema, which is chronic at baseline. According to the patient and the patient's son, this is much better than her usual baseline. Dorsalis pedis pulses and posterior tibialis pulses present +2 bilaterally symmetrical. SKIN: No ulcer, no rash, no cyanosis. NEUROLOGIC: Sensation intact in all extremities. Muscle strength can not be assessed in the left lower extremity due to the fracture in the left hip. Right lower extremity and both upper extremities strength intact. Cranial nerves 2 through 12 are unremarkable. Obvious deformity in the left lower extremity with external rotation of the left hip. LABORATORY DATA: Troponin is less than 0.04. CPK 59. ProBNP 5657. CK-MB less than 0.5. White blood cell 15.6, hemoglobin 10.3, hematocrit 33, MCV 93.5, platelet 276. Basic metabolic panel was performed from the outside facility today. I do not have access right now to the chart given the patient is in surgery right now. PATIENT'S NAME: NELI PAUL [facility] AGE: 81 Y [address] ROOM: [place] [address] LOCATION: [facility] ADMIT DATE: 09/30/2016 History & Physical DISCHARGE DATE: FAMILY PHYSICIAN: Earnest Garber MD ATTENDING PHYSICIAN: ALVARO DINERO Our basic metabolic panel is currently pending. Liver function testing was performed from the outside facility as well. I do not have the chart since she is in surgery right now. INR 1.21. PTT 36. IMAGING STUDY: The patient had a CT of abdomen and pelvis performed from the outside facility. The official report is in the chart. I do not have access to the chart. The patient is currently in surgery. Left femur x-ray performed here in our facility shows acute intertrochanteric left hip fracture, nondisplaced. Intact bony pelvis. Bones diffusely demineralized. Pelvis x-ray performed here in our facility shows the same finding. Chest x-ray performed here in our facility shows no evidence of acute cardiopulmonary process. Lungs are clear. Heart size is normal. Pacemaker is present. EKG on admission performed from the outside facility, the original copy shows paced rhythm, and I do not have the actual EKG in front of me given the patient is in surgery right now and EKG is in the chart. ASSESSMENT AND PLAN: 1. Regarding her acute intertrochanteric left hip fracture nondisplaced status post mechanical fall: Per Orthopedic Surgery, to do surgery to fix the fracture. Deep venous thrombosis prophylaxis and pain control per Orthopedic Surgery. 2. Regarding her preoperative medical clearance for the surgery: She is medically cleared for the surgery tonight. From the guideline for the preoperative medical clearance for noncardiac surgery, she does not have any active contraindication currently to undergo orthopedic surgery. Orthopedic surgery is considered as an intermediate risk surgery. She does have a history of a chronic diastolic heart failure with a history of chronic severe mitral regurgitation and chronic severe aortic stenosis, not a candidate for surgical replacement or repair due to her right liver metastasis from the probable primary colon cancer. However, she is on room air right now with oxygen saturation at 94%. She denies any shortness of breath. Her lungs are clear. Chest x-ray looks totally clear without any effusion or any findings to suggest heart failure. There is no JVD on neck. Leg edema is chronic, and it is better than the baseline. Therefore, even though the proBNP is high, but could be from underlying valvulopathy and underlying coronary artery disease. The patient currently does not have any active contraindication for surgery. Regarding her unstable angina and also status post one bare-metal stent PATIENT'S NAME: NELI PAUL [facility] AGE: 81 Y [address] ROOM: [place] [address] LOCATION: [facility] ADMIT DATE: 09/30/2016 History & Physical DISCHARGE DATE: FAMILY PHYSICIAN: Earnest Garber MD ATTENDING PHYSICIAN: ALVARO DINERO placed in August 2016 in [facility], currently her troponin, CPK, CK-MB all normal the first set. EKG paced. She denies any chest pain. She is not in acute coronary syndrome, therefore, there is also no contraindication at the moment to undergo orthopedic surgery to fix the fracture. Orthopedic surgeon, Dr. Ramos also evaluated the patient in person, also evaluated the imaging of CT scan, and also the x-ray, there is no finding to be concerned about bone metastasis or pathologic left hip fracture. The patient is cleared to undergo orthopedic surgery tonight. Tomorrow morning, the hospitalist, who is working tomorrow, can touch base with the primary jboss developer, Dr. Carr in [facility] to see if Plavix should be continued or not given that bare-metal stent was placed in early August and technically has already been 4 weeks already. Perhaps, the patient should go back on aspirin indefinitely. Xarelto per orthopedic surgeon, Dr. Ramos, could be resumed tomorrow right after the surgery tonight. I will defer the use of Plavix or aspirin to the primary jboss developer, who the hospitalist tomorrow can get in touch with Dr. Carr for further recommendation. Per orthopedic surgeon, Dr. Ramos, he will rather have the Plavix on hold for 4 to 5 days to decrease the risk of hemarthrosis after the fracture surgery. However, this also can pose a risk for stent restenosis. However, she will be taking Coumadin as well and undergoing after the hip surgery tonight, therefore it is important to touch base with the jboss developer tomorrow, Dr. Carr, for recommendation regarding going back on aspirin or Plavix and when is the best timing. 3. Regarding her history of diastolic congestive heart failure: The echo was performed in August 2016 in [facility]. It is in the chart. Currently, the patient is not in heart failure. I will continue her home medication for now, and when the patient is on IV fluids, the patient should not be getting Lasix because that is counterproductive effect. For now, I will hold the Lasix given the patient is on IV fluids for hydration for acute kidney injury. Lasix can always be resumed after the IV fluids is discontinued. 4. Regarding her history of paroxysmal atrial fibrillation: Currently, she is paced. Xarelto can be resumed tomorrow per Orthopedic Surgery. She is paced right now. 5. Regarding her history of hypertension: I do not see any blood pressure medication in her medication list. Once again, the patient is already in hospice care. I will not start any blood pressure medication unless it is necessary. 6. Regarding her anxiety disorder: Continue home Xanax b.i.d. 0.25 mg. 7. Regarding her history of liver metastasis: The patient is already on hospice care. The patient does not want to proceed with any further imaging test or further study. The primary cancer could be from the colon, and the patient also refused a colonoscopy. When the patient gets PATIENT'S NAME: NELI PAUL [facility] AGE: 81 Y [address] ROOM: [id number] [place], [place] [address] LOCATION: [facility] ADMIT DATE: 09/30/2016 History & Physical DISCHARGE DATE: FAMILY PHYSICIAN: Earnest Garber MD ATTENDING PHYSICIAN: ALVARO DINERO discharged home, the patient will continue her home hospice care at home. 8. Regarding her history of severe aortic stenosis and severe mitral regurgitation: No plan for any surgery in the future given that she is not a candidate due to the history of a liver metastasis. The patient is already in hospice care. 9. Prophylaxis: Per Orthopedic Surgery. CODE STATUS: DNR/DNI. Time spent on the day of admission 50 minutes including chart review, interviewing and examining the patient, addressing all the questions and concerns the patient and family members had at the bedside. I also went over the plan of care in detail with the patient and the patient's family members including the daughters and the son and also with the neurotrauma unit, the nurses. I also have personally spoken to Dr. Ramos over the phone regarding the patient's care and plan of care. Further plan depends on clinical course. ALVARO DINERO MD CC/kurtis /[id number] D: [id number] T: HISTORY & PHYSICAL
--- NOTE | ~2016-09-30 | CON ---
PATIENT'S NAME: SIOMARA COOPER [facility] AGE: 81 Y [address] ROOM: [place] [address] LOC[facility]: [facility] ADMIT DATE: 09/30/2016 Consultation DISCHARGE DATE: FAMILY PHYSICIAN: Earnest Garber MD ATTENDING PHYSICIAN: ALVARO DINERO DATE OF CONSULTATION: 09/30/2016 REFERRING PHYSICIAN: SHLOMO MCELROY MD CHIEF COMPLAINT: Left hip pain. HISTORY OF PRESENT ILLNESS: Siomara Cooper is an 81-year-old female. She is a female, who was recently placed on hospice secondary to metastatic cancer of unknown origin. She had a ground-level fall this morning. She had immediate pain and inability to bear weight on that left hip. X-rays were taken as well as a CT scan at [place], [place], which showed an intertrochanteric hip fracture. Prior to the fall, she denies any hip pain. 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 She had no hip pain leading up to this fall. She does live on her own. She does ambulate with a walker for all but short distances. PAST MEDICAL HISTORY: 1. Coronary artery disease, status post stenting. 2. Hypertension. 3. Anxiety. 4. Aortic stenosis, status post valvuloplasty. 5. Iron-deficiency anemia. 6. History of DVT, currently on Pradaxa. MEDICATIONS: 1. Metoprolol. 2. Lasix. 3. Plavix. 4. Vitamin B12. 5. Atorvastatin. 6. Fluconazole. 7. MiraLAX. 8. Colace. 9. Ativan. ALLERGIES: SULFA. PATIENT'S NAME: SIOMARA COOPER [facility] AGE: 81 Y [address] ROOM: [address] [place] [id number] LOCATION: [facility] ADMIT DATE: 09/30/2016 Consultation DISCHARGE DATE: FAMILY PHYSICIAN: Earnest Garber MD ATTENDING PHYSICIAN: ALVARO DINERO SOCIAL HISTORY: She lives in [place], [place]. She currently spends majority of her time living with her son. Denies any tobacco or alcohol use. FAMILY HISTORY: Significant for lung cancer as well as a stroke in her brother. REVIEW OF SYSTEMS: As per the HPI, a 14-point review of systems was conducted and is negative. PHYSICAL EXAMINATION: GENERAL: An 81-year-old female. She appears her stated age. She is hard of hearing, but she is able to understand. Her family is at the bedside. HEENT: Normocephalic, atraumatic. LUNGS: Unlabored respirations on room air. ABDOMEN: Nondistended. : Deferred. RECTAL: Deferred. EXTREMITIES: Right lower extremity: Skin is intact. There is no erythema, there is no ecchymosis, there is no induration. She has no pain over the right hip, right knee, or right ankle. She is able to plantar flex and dorsiflex her right ankle. Left lower extremity: Skin is intact. She does have good capillary refill. I stepped to palpate the dorsalis pedis and posterior tibialis pulse, but she has intact sensation on the dorsal and plantar aspect of that foot. She has pain with log roll. The leg is positioned in a short and externally rotated position. SKIN: Intact. The thigh is soft and compressible. No evidence of any hematoma, no ecchymosis over that hip. IMAGING DATA: X-rays and CT scan show a minimally displaced left intertrochanteric hip fracture. PLAN: At this point, she is an 81-year-old female. She was recently placed on hospice care secondary to metastatic cancer. The family elected not to proceed with any type of biopsy. When I look at the CT scan and the x-rays, I do not see any evidence of any metastatic disease in this hip. That being said, she does have an acute fracture. She did not have any hip pain prior to the fall. Ultimately, I think this is an acute fracture. From a palliative and pain controlling standpoint, I think the best recommendation would be for intramedullary nail fixation in a long nail form to try to prevent any future fractures. We did talk about the risk of potential metastatic spread. We also talked about the risk of bleeding, infection, damage to surrounding PATIENT'S NAME: SIOMARA COOPER [facility] AGE: 81 Y [address] ROOM: [place] [address] LOCATION: [facility] ADMIT DATE: 09/30/2016 Consultation DISCHARGE DATE: FAMILY PHYSICIAN: Earnest Garber MD ATTENDING PHYSICIAN: ALVARO DINERO structures, blood clots, as well as the potential need for future surgery and fracture collapse. The other thing we talked about was the risk of anesthesia including heart attack, stroke, pneumonia, and . Both she and the family understands those risks. The son is her medical power of kitchen food assembler and wishes to proceed with operative fixation. MD SHAYNE HAWKINS/sotol /[id number] d: 10/01/16324 t: 10/18/16 1527, CONSULTATION REPORT
--- NOTE | ~2016-09-30 | OR ---
PATIENT'S NAME: SIOMARA COOPER [facility] AGE: 81 Y [address] ROOM: [place] [address] LOCATION: [facility] ADMIT DATE: 09/30/2016 OR/Procedure Report DISCHARGE DATE: FAMILY PHYSICIAN: Earnest Garber MD ATTENDING PHYSICIAN: ALVARO DINERO SURGEON: Marino Ramos MD RATOPRINTER: None. DATE OF PROCEDURE: 09/30/2016 PREOPERATIVE DIAGNOSIS: Left hip intertrochanteric fracture. POSTOPERATIVE DIAGNOSIS: Left hip intertrochanteric fracture. PROCEDURE: Left hip closed reduction and fracture fixation using a Synthes trochanteric fixation nail. ANESTHESIA: General. ESTIMATED BLOOD LOSS: 150 mL. DRAINS: None. COMPLICATIONS: None. SPECIMENS: None. INDICATIONS: Siomara Cooper is an 81-year-old female. She was recently placed on hospice for metastatic cancer. Presumed colon cancer per the family's report. She has been living at home and wandering with a walker. She had a ground level fall this morning resulting in a left hip pain. She denied any pain prior to the fall. She was seen in an outside facility where x-rays and CT scan revealed an intertrochanteric fracture, closed in nature. She was transferred to [facility] for definitive care. She was admitted by the Hospitalist Service and Orthopedics was consulted. Upon review of her x-rays, she was found to have a stable intertrochanteric hip fracture that I felt was amenable to intramedullary nail fixation. I talked with them about the risk of metastatic spread. She did not have any hip pain. I did not see any lesions on their CT scan making me think that this was not a pathologic fracture. That being said, we talked about the risk of bleeding, infection, damage to surrounding structures, fracture collapse as well as the potential need for future surgery. We also talked about the risk of anesthesia including heart attack, stroke, pneumonia, and . She elected to proceed as did her power of county attorney, which was her son. DESCRIPTION OF PROCEDURE: A surgical marking pen was used to correctly PATIENT'S NAME: SIOMARA COOPER [facility] AGE: 81 Y [address] ROOM: [place] [address] LOCATION: [facility] ADMIT DATE: 09/30/2016 OR/Procedure Report DISCHARGE DATE: FAMILY PHYSICIAN: Earnest Garber MD ATTENDING PHYSICIAN: ALVARO DINERO identify the left hip as the surgical site. Consent had been signed and dated. She was taken back to the operating suite and placed supine on the OR table. An arterial line was placed. She underwent general anesthesia. Time- out was called by myself. During the time-out, the patient, the procedure to be performed, the dosing of the preoperative antibiotics in the form of Ancef, and the postoperative plan was reviewed by everyone in the room. The left lower extremity was then placed in the fracture table using the fracture boot. The nonoperative extremity was draped out of the way. Gentle longitudinal traction with some internal rotation reduced the fracture very nicely. This was confirmed on AP and lateral x-rays. The left lower extremity was then prepped and draped in a standard sterile fashion. I used x-ray guidance. I passed a guidepin through the skin and through the fascia down to the level of that greater trochanter, the site where the fracture site was. I confirmed this on both AP and lateral x-rays. I then advanced it down to the level of the lesser trochanter and again confirmed it on AP and lateral x-rays. A #10 blade scalpel was used make a skin incision over the top of that guidepin. I dissected down with the knife through the fascia. A soft tissue protector was applied. I then came over the top of that guidepin with the entry reamer down to the level of the lesser trochanter. The entry reamer and the initial guidepin were removed. A long guidepin was then passed. I went ahead and passed the guidepin down to the level of the knee. This was confirmed on AP and lateral x-rays. The top of the patella measured 360 mm that was the desired length. I then sequentially reamed starting with a size 9 mm reamer followed by a 10, all the way up to a size 13 reamer. A left 125 mm neck shaft angle measuring 360 mm in length and 12 mm in diameter was opened. I passed the nail over the guide pin. Guidepin was removed. I then used the aiming arm to pass the guidepin through the skin after an incision in the skin and the fascia had been made. I slid the aiming arm outrigger jig down to the level of the lateral cortex. I then passed the guidepin into the center- center position of the femoral head, this was confirmed on AP and lateral x- rays. It measured 84 mm. Given the fact that I desired to compress across the fracture site, an 80 mm lag screw was opened. I then drilled over the top of that guidepin to the appropriate depth. I then used the screwdriver to pass the 80 mm lag screw into position. I used the outrigger jig to compress the fracture and then I locked the nail proximally. Final x-rays of the hip were obtained. I then went distally to the level of the knee. Using perfect circles technique, I passed a single distal locking screw in lateral to medial fashion through a static distal locking screw. This was confirmed, final x- rays were taken. The wounds were thoroughly irrigated. Hemostasis was achieved. I closed the fascia with an 0 Vicryl. I then closed the skin with a 2-0 Vicryl followed by ros. Dressings in the form of Xeroform, 4x4s, and Tegaderm were applied. She was transferred to the recovery room in stable condition, where she was found to be neurovascularly intact. PATIENT'S NAME: SIOMARA COOPER [facility] AGE: 81 Y [address] ROOM: [place] [address] LOCATION: [facility] ADMIT DATE: 09/30/2016 OR/Procedure Report DISCHARGE DATE: FAMILY PHYSICIAN: Earnest Garber MD ATTENDING PHYSICIAN: ALVARO DINERO MD SHAYNE HAWKINS/modl /[id number] d: 10/01/169 t: 10/18/16 1529, OPERATIVE SUMMARY
[~2016-09-30 13:30] MED LIST changes: -ATIVAN 0.5MG0.5 MG PO; -DICYCLOMINE HCL20 MG PO; -DULCOLAX10 MG R; -HALDOL PO; -LEVSIN/SL0.125 MG SL; -MORPHINE 20MG/ML PO; -NITROSTAT0.4 MG SL; -TYLENOL650 MG R
--- NOTE | 2016-09-30 16:29 | NUR ---
PATIENT IS 81 YO FEMALE ADMITTED THIS AFTERNOON WITH FRACTURE OF LEFT HIP AFTER A FALL THIS MORNING AT HER HOME. HER SON LIVES WITH HER. SHE RECENTLY HAD A FALL AND FRACTURED HER HUMERUS. SHE WAS ALSO RECENTLY DISCOVERED TO HAVE A CANCER, BUT THE FAMILY DECIDED TO NOT HAVE ANY BIOPSIES DONE TO DETERMINE THE ORIGIN THEY FELT SHE WOULD NOT HANDLE THE TREATMENT NOR THE BIOPSY AND OPTED FOR HOSPICE. THEY HAVE BEEN COMING FOR ABOUT A WEEK NOW TO SEE PATIENT. PATIENT APPARENTLY GOT HERSELF UP TO THE BATHROOM AND WAS COMING BACK TO BED WHEN THE SON HEARD HER FALL. SHE DID NOT APPARENTLY CALL FOR HELP TO GET UP. HE STATES HE HAS BEEN HELPING HER WITH CARES AND MEALS, ETC. PATIENT HAS SALINE LOCK IN LEFT FOREARM WITHOUT ERYTHEMA OR EDEMA NOTED AT SITE. EDUCATION IS GIVEN TO FAMILY PATIENT IS [place] AND IS UNCOMFORTABLE WHEN TRIED TO SPEAK TO HER. FAMILY DENIES QUESTIONS AT THIS TIME. CALL LIGHT IS WITHIN REACH. PNEUMATICS ARE ON RIGHT FOOT ONLY AT THIS TIME, RED SOCK ON RIGHT FOOT. REPORT IS GIVEN TO CHASITY DARLING.
[2016-09-30 17:19] LABS: CPK 59 IU/L (21-215)
--- NOTE | 2016-09-30 17:48 | NUR ---
Significant Event: Under my care from [id number]. Patient arrived from [facility] per ambulance with a left hip fracture. Patient has been on hospice for one week. Patient has a history of CA with mets. Patient has a lot of pain when moved. Patient is alert/oriented to person, but confused on time and place. Very [place]. Bedrest. [place] catheter came from [facility]. IV in L) hand is a #24 gauge. They tried 8 times to get this. Follow up:
[2016-09-30] MEDS ORDERED: NITROSTAT0.4 MG SL (18:02)
[2016-09-30] MEDS ORDERED: TYLENOL650 MG R (18:03)
[2016-09-30] MEDS ORDERED: XARELTO15 MG PO (18:03)
[2016-09-30] MEDS ORDERED: DICYCLOMINE HCL20 MG PO (18:04)
[2016-09-30] MEDS ORDERED: DULCOLAX10 MG R (18:04)
[2016-09-30] MEDS ORDERED: HALDOL PO (18:05)
[2016-09-30] MEDS ORDERED: LEVSIN/SL0.125 MG SL (18:06)
[2016-09-30] MEDS ORDERED: ATIVAN 0.5MG0.5 MG PO (18:06)
[2016-09-30] MEDS ORDERED: MORPHINE 20MG/ML PO (18:07)
[2016-09-30 18:15] LABS: INR - (THERAPEUTIC) 1.21 (0.92-1.07); PROTIME 12.7 SECONDS (9.8-11.4)
[2016-09-30 20:42] LABS: BASOPHIL # 0.1 K/uL (0.0-0.2); BASOPHIL % 0.3 %; EOSINOPHIL # 0.1 K/uL (0.0-0.5); EOSINOPHIL % 0.8 %; HEMOGLOBIN 10.3 g/dL (10.0-15.0); IMMATURE GRANULOCYTE # 0.2 K/uL (0.0-0.3); IMMATURE GRANULOCYTE % 1.3 %; LYMPHOCYTE # 1.6 K/uL (0.8-4.0); LYMPHOCYTE % 10.1 %; MCV 93.5 fl (83.0-98.0); MONOCYTE # 1.9 K/uL (0.0-1.0); MPV 9.9 fl (9.4-12.4); NEUTROPHIL # (ANC) 11.8 K/uL (1.8-7.8); NEUTROPHIL % 75.5 %; NRBC % 0 /100WBC (0-0.00); RDW-CV 17.4 % (11.9-14.6); WBC 15.6 K/uL (4.0-11.0)
[2016-09-30 20:45] LABS: MCH 29.2 pg (27.0-34.0); MCHC 31.2 gm/dL (32.0-36.5); PLATELET COUNT 276 K/uL (150-450); RBC 3.53 M/uL (3.00-5.00)
[2016-09-30 20:59] LABS: ALBUMIN 2.4 gm/dL (3.5-5.0); ANION GAP 10.4 (10.0-19.0); CALCIUM 8.1 mg/dL (8.5-10.5); CREATININE 1.4 mg/dL (0.5-1.1); POTASSIUM 4.4 mMol/L (3.7-5.1); TOTAL BILIRUBIN 1.5 mg/dL (0.0-1.5); TOTAL PROTEIN 5.3 g/dL (6.0-8.4)
--- NOTE | 2016-10-01 00:57 | NUR ---
Significant Event: Patient alert/oriented to person, time. Very [place]. Disoriented to place. Perrla. Weak strength throughout. Obeys commands. Wiggles toes to bilateral feet. Lungs clear, on 0.5 L. Bowels hypoactive. Left for surgery at 1999, came back at 2350. Hypotensive post op. Pacemaker. PIV to right AC running fluids at 50 ml/hrs. De La Rosa intact at this time draining claudia colored urine. Pillow between legs. Received fentanyl last at 2309, resting well. Follow up: Turn q 2. Pain management.
[2016-10-01 04:02] LABS: HEMATOCRIT 29.7 % (30.0-46.0); HEMOGLOBIN 9.2 g/dL (10.0-15.0); MCH 29.4 pg (27.0-34.0); MCV 94.9 fl (83.0-98.0); MPV 10.4 fl (9.4-12.4); RBC 3.13 M/uL (3.00-5.00); RDW-CV 17.4 % (11.9-14.6); WBC 16.6 K/uL (4.0-11.0)
[2016-10-01 04:14] LABS: CREATININE 1.4 mg/dL (0.5-1.1); POTASSIUM 4.2 mMol/L (3.7-5.1)
[2016-10-01 04:15] LABS: ANION GAP 16.2 (10.0-19.0); CALCIUM 7.4 mg/dL (8.5-10.5)
--- NOTE | 2016-10-01 10:20 | NUR ---
Introduced self/role to patient and her family. AVEL Moura also present. Patient currently lives at home with her son/POA Brian Cooper, in [place]. Options were discussed about the plan going forward. 1. Senior Living under Medicare for a short while but would have to end Hospice services, 2. Senior Living private pay with Hospice on board, 3. Home with HHC/therapies, 4. Home with Hospice. At this point everyone turned to Brian and stated he was making all the decisions as the POA and the family members left the room leaving Brian and his mom. They talked. Patient clearly wanted to go home but was thinking everyone was conspiring to not let her do that. Zeny and I left the room. Brian came out a short time later and said he needed to go think about somethings, left NTU. At that point 2 of patients son's and a daughter approached me. They wanted to share their concerns about patient going home and the care that their brother provides. I asked if the house was safe, was it dirty? They said no that was not the issues. I asked if they had shared their concerns with Adult Protective Services? They said yes but nothing was done. I stated I would talk to [facility] to see if they have any concerns about patient going home. Sounds like they have been in place for a week. I asked how long Brian had been the POA? They stated about 4 days ago. Before there were 2 kids listed but an criminal attorney came to the house and they changed it to just Brian. They think Brian is pushing their mom away from them. Patient is saying mean things to them. I did explain that with all the drugs their mom was on for surgery this can effect her demeanor and for right now they need to just let those hurtful statements roll off their backs. They said the house is full of cats inside and out but there are no concerns about it being unclean. 1110 patients nurse Sue asked how my talk went with family. Still unsure of discharge plans but would like to shoot for so we would atleast meet a qualifying stay for SNF if needed. She will communicate that on. 0 Brian came back to talk. He really wants his mom to go home because that is what she wants and what he has always promised her. He stated his siblings have barely talked to their mom in years but now that she has a terminal illness want back her life. I asked how long he has been caring for her? He stated he moved here about 8 years ago after a work injury where he got a settlement and doesn't work any longer. He cared for his dad for 3 1/2 years until he and then has cared for his mom for about 5 years. We talked about equipment needed at home possibly, like a lift and hospital bed which Hospice should provide. He stated he is friends with one of the hospice nurses he will call them. I told him I would also call them and update them. He didn't have any further questions at this time. We will probably talk again tomorrow. 1320 Called [facility] and spoke to Angélica. They were aware of some family dynamics but had no concerns about patient or care by her son. They can get a hospital bed and lift in place. Let her know we were looking at dismissal. Tanja is patients [employer].
--- NOTE | 2016-10-01 17:09 | NUR ---
Significant Event:PT IS ALERT TO PERSON AND PLACE. IS SLIGHTLY AGITATED AT TIMES DUE TO PAIN OR FAMILY DYNAMICS. UNABLE TO STAND. FULL LIFT. CLEAR LUNG SOUNDS ON RA. ACTIVE BS. NO BM THIS SHIFT. REMOVED MENENDEZ AT 0720 NO VOID OR URGE YET. DID BLADDER SCAN AROUND 1420 WITH ONLY 34 ML NOTED. DRSG TO LEFT HIP INTACT. GAVE TYLENOL AT 0754 FOR PAIN. NO COMPLAINTS TIL 1700 WITH REPO SO GAVE ROXANOL AT 1703. IV R) AC AND LEFT HAND. Follow up:MONITOR PAIN.
--- NOTE | 2016-10-01 22:53 | NUR ---
Significant Event: Patient A/O x 3. Forgetful of situation at times. Perrla. Denies N/T. Wiggles toes to bilateral feet. Generalized weakness. Lungs clear and dim on room air. Bowels active. No bowel movement this shift. Voided x 2 on the bedpan, continent of urine. SCDs intact. Pain to LLE with movement, Tylenol for pain, relief noted. Dressing to LLE C/D/I. PIV to right AC, saline locked. PIV to left hand saline locked. Turn q 2. Follow up: Pain management. Encourage oral fluids.
--- NOTE | 2016-10-02 02:43 | NUR ---
Significant Event: A&OX3. Very hard of hearing. On tele paced rythm. VSS. Has pitting edema to lower extremities. RA lungs clear. Regular diet. Low urine output voids per bedpan. Up full lift. Drsg to L) leg gauze and tegaderm c/d/i. IV to R) AC SL. IV to L) hand SL sluggish. lungs clear. Follow up: On hospice care. Looking for placement at retirement with hospice
[2016-10-02 04:00] LABS: BASOPHIL % 0.2 %; EOSINOPHIL # 0.3 K/uL (0.0-0.5); EOSINOPHIL % 1.8 %; HEMATOCRIT 27.9 % (30.0-46.0); HEMOGLOBIN 8.6 g/dL (10.0-15.0); IMMATURE GRANULOCYTE # 0.1 K/uL (0.0-0.3); IMMATURE GRANULOCYTE % 0.9 %; LYMPHOCYTE # 1.1 K/uL (0.8-4.0); LYMPHOCYTE % 6.8 %; MCH 29.4 pg (27.0-34.0); MCHC 30.8 gm/dL (32.0-36.5); MCV 95.2 fl (83.0-98.0); MONOCYTE # 1.8 K/uL (0.0-1.0); MONOCYTE % 10.9 %; MPV 10.6 fl (9.4-12.4); NEUTROPHIL # (ANC) 12.9 K/uL (1.8-7.8); NEUTROPHIL % 79.4 %; NRBC % 0 /100WBC (0-0.00); PLATELET COUNT 237 K/uL (150-450); RBC 2.93 M/uL (3.00-5.00); RDW-CV 17.5 % (11.9-14.6)
[2016-10-02 04:02] LABS: WBC 16.2 K/uL (4.0-11.0)
[2016-10-02 04:12] LABS: ANION GAP 16.3 (10.0-19.0); CREATININE 1.6 mg/dL (0.5-1.1); POTASSIUM 4.3 mMol/L (3.7-5.1)
[2016-10-02 04:14] LABS: CALCIUM 7.2 mg/dL (8.5-10.5)
--- NOTE | 2016-10-02 09:40 | NUR ---
6297 Cesar Paul informed me patients son changed his mind last night and is now thing placement would be better. 1100 Called patients son Brian and left a message. 1140 Brian called back, would like to look into [facility] under Medicare. He stated how Medicare pays in a [facility]cfp. I told him that was all correct however she would have to make progress with therapies inorder for Medicare to continue to pay those 100 days. He voiced understanding. 1240 Called Carmela at [facility] #[phone]. Explained the situation. Faxed referral.
--- NOTE | 2016-10-02 11:37 | NUR ---
Significant Event: Turned over cares to Marina Rico at 1100. Patient A/O X3. [place]. Forgetful at times. VSS. Afebrile. Room air with sats in the mid 90s. LS clear and diminished. BS active X4. Voids per commode. PIV SLL. Full lift. Patient tearful at times. Cooperative with cares. Follow up: Placement with hospice?
--- NOTE | 2016-10-02 12:05 | NUR ---
ASSUMED PATIENT CARES AT 11:30
--- NOTE | 2016-10-02 17:43 | NUR ---
C/O BACK PAIN TODAY. HAD 1 PECOCET WHICH DID NOT HELP SO WAS GIVEN 1 DOSE OF IV DILAUDID GIVEN. HAVING LOTS OF PAIN GETTING ON AND OFF THE COMMODE AND BED TOVAR SO MENENDEZ WAS REINSERTED. TAKE MEDS CRUSHED IN APPLE SAUCE. HAS EDEMA TO BILAT LOWER EXTREMITIES RIGHT IS WORSE THAN THE LEFT. DRESSING C/D/I. PT IS A FULL LIFT.
[2016-10-03 04:15] LABS: BASOPHIL % 0.1 %; EOSINOPHIL % 0.1 %; HEMATOCRIT 28.5 % (30.0-46.0); HEMOGLOBIN 8.9 g/dL (10.0-15.0); IMMATURE GRANULOCYTE # 0.3 K/uL (0.0-0.3); IMMATURE GRANULOCYTE % 1.3 %; LYMPHOCYTE # 1.4 K/uL (0.8-4.0); LYMPHOCYTE % 6.2 %; MCH 29.6 pg (27.0-34.0); MCHC 31.2 gm/dL (32.0-36.5); MCV 94.7 fl (83.0-98.0); MONOCYTE # 2.3 K/uL (0.0-1.0); MONOCYTE % 10.7 %; MPV 10.9 fl (9.4-12.4); NEUTROPHIL # (ANC) 17.7 K/uL (1.8-7.8); NEUTROPHIL % 81.6 %; NRBC % 0 /100WBC (0-0.00); PLATELET COUNT 257 K/uL (150-450); RBC 3.01 M/uL (3.00-5.00); RDW-CV 18.1 % (11.9-14.6)
[2016-10-03 04:23] LABS: WBC 21.7 K/uL (4.0-11.0)
[2016-10-03 04:33] LABS: ANION GAP 14.7 (10.0-19.0); CALCIUM 7.6 mg/dL (8.5-10.5); CREATININE 1.6 mg/dL (0.5-1.1); POTASSIUM 4.7 mMol/L (3.7-5.1)
--- NOTE | 2016-10-03 05:42 | NUR ---
Significant Event:Patient A/O x 3. Forgetful of situation at times. Generalized weakness. Follows commands. Perrla. Very hard of hearing. Pacemaker. Hypotensive this shift, SBPs 90s. Lungs clear on room air. Regular diet, bowels active. No bm this shift. De La Rosa intact. Full lift. Dressings x 2 intact to LLE. IV to left hand saline locked. IV to right AC saline locked. Morphine last given at 2125. Percocet last given at 2300 x 1 tab. Follow up: care home with hospice when ready
--- NOTE | 2016-10-03 10:00 | NUR ---
Spoke to Maribell from [facility], answered her questions. She will talk to her team and see how if they want to use Medicare or Hospice, will get back to me. 1055 Angélica from [facility] called because [facility] had called her and they were wondering the plan. I am still waiting to hear back from [facility] will let everyone know when I get it figured out. 1130 Carmela from [facility] called and left a message that they can accept patient on Medicare A with therapies. They will can pick her up at 1100 tomorrow. 1145 Communicated to Cesar Paul and Dr El - patient needs to be Med A and [facility]'s van needs to come and get her at 1100. They agreed that would be fine. 1230 Called back Carmela at [facility] to confirm dismissal at 1100 tomorrow.
[2016-10-03 14:04] LABS: BLOOD URINE 250 /UL (NEGATIVE); COLOR URINE AMBER (YELLOW); GLUCOSE URINE NEGATIVE (NEGATIVE); KETONE URINE 5 mg/dL (NEGATIVE); LEUKOCYTES URINE 500 /UL (NEGATIVE); NITRITE URINE POSITIVE (NEGATIVE); PROTEIN URINE 30 mg/dL (NEGATIVE); SPEC GRAVITY URINE 1.025 (1.003-1.035); TURBIDITY URINE 3+ (CLEAR); UROBILINOGEN URINE 4 mg/dL (NORMAL)
[2016-10-03 14:13] LABS: RBC URINE FULL FIELD #/HPF (NEGATIVE); WBC URINE FULL FIELD #/HPF (NEGATIVE)
[2016-10-03 14:14] LABS: AMORPHOUS URINE 2+ (NEGATIVE); BACTERIA URINE MODERATE (NEGATIVE); MUCUS URINE 1+ (NEGATIVE)
[2016-10-03 16:04] LABS: ANION GAP 15.8 (10.0-19.0); CALCIUM 7.7 mg/dL (8.5-10.5); POTASSIUM 4.8 mMol/L (3.7-5.1)
--- NOTE | 2016-10-03 17:38 | NUR ---
Significant Event: Alert to self, drowsy, slow to respond. Hard of hearing, especially R) ear. Hypotensive, SPB 90's. 250ml NS bolus and 500ml NS bolus given this shift. Labs drawn, procal and lactate elevated. Zosyn started. Lungs clear/dim, RA. No BM today. De La Rosa, UOP only 25ml this shift, Dr. El notified. BLE edema. L) hand IV running Zosyn. R) AC SL. 2A Full Lift. Percocet and Tylenol given for pain today. Follow up: Hospice, comfort cares.
--- NOTE | 2016-10-04 03:43 | NUR ---
Significant Event: First assessment patient was alert and oriented to time. Last two assessments patient has been drowsy and respones to voice. Pupils 2mm and sluggish. Fatigue and weakness throughout. Does answer some yes and no questions. Has a pacemaker- is paced. BLE edema 2-3+ edema-pulses are thready. Hypotensive-hospitalist aware- call if MAP is less than 50. Room air-clear. Last BM 09/29-active. De La Rosa- with claudia colored urine-100 ml output this shift. Regular diet-crush meds give with applesauce. 2A full lift-turn side to side q2h. PIV in left hand SL'd & right FA with NS at 75 ml/hr. Slight jaundice. Two dressings to the lateral left thigh-gauze and tegaderm C/D/I. Follow up: TO [facility] in [place] today.
[2016-10-04 05:20] LABS: BASOPHIL % 0.1 %; EOSINOPHIL # 0.1 K/uL (0.0-0.5); EOSINOPHIL % 0.8 %; HEMATOCRIT 24.4 % (30.0-46.0); IMMATURE GRANULOCYTE # 0.2 K/uL (0.0-0.3); LYMPHOCYTE # 0.9 K/uL (0.8-4.0); MCH 28.8 pg (27.0-34.0); MCHC 30.7 gm/dL (32.0-36.5); MCV 93.8 fl (83.0-98.0); MONOCYTE # 1.6 K/uL (0.0-1.0); MONOCYTE % 9.4 %; NEUTROPHIL # (ANC) 14.2 K/uL (1.8-7.8); NEUTROPHIL % 83.7 %; NRBC % 0 /100WBC (0-0.00); PLATELET COUNT 229 K/uL (150-450); RDW-CV 18.3 % (11.9-14.6)
[2016-10-04 05:24] LABS: HEMOGLOBIN 7.5 g/dL (10.0-15.0)
[2016-10-04 05:39] LABS: ANION GAP 15.7 (10.0-19.0); CREATININE 1.9 mg/dL (0.5-1.1); MAGNESIUM 2.3 mg/dL (1.8-2.6); POTASSIUM 4.7 mMol/L (3.7-5.1)
--- NOTE | 2016-10-04 10:44 | NUR ---
Significant Event: Roxanol given for right rib pain. Ativan SL given for anxiety. De La Rosa in place, 100 ml dark cloudy urine over 12 hour nightshift. IVs removed. L) hip surgical dressing in place. Temp of 100.2, room air. SBP 113/56. Paced at 60. Edema throughout. Plan is to keep patient comfortable. DC to [facility] via ambulance.
== END 2016-10-04 11:14 | DRG 480 ==
LOC: GNTU 14:57
PROVIDERS: Family Medicine; Nurse Anesthetist, Certified Registered; Nurse Practitioner Family; Orthopaedic Surgery Sports Medicine; ADMIT Internal Medicine
PROC: 0QS734Z Reposition Left Upper Femur with Internal Fixation Device, Percutaneous Approach (ICD-10-PCS; principal; 2016-09-30)
DX: S72.142A Displaced intertrochanteric fracture of left femur, initial encounter for closed fracture (principal); G93.40 Encephalopathy, unspecified; A41.9 Sepsis, unspecified organism; I50.33 Acute on chronic diastolic (congestive) heart failure; C78.7 Secondary malignant neoplasm of liver and intrahepatic bile duct; K65.2 Spontaneous bacterial peritonitis; N17.9 Acute kidney failure, unspecified; D62 Acute posthemorrhagic anemia; I25.10 Atherosclerotic heart disease of native coronary artery without angina pectoris; I48.0 Paroxysmal atrial fibrillation; Z79.01 Long term (current) use of anticoagulants; I35.0 Nonrheumatic aortic (valve) stenosis; Z51.5 Encounter for palliative care; Z66 Do not resuscitate; F41.9 Anxiety disorder, unspecified; Z86.718 Personal history of other venous thrombosis and embolism; Z95.0 Presence of cardiac pacemaker; D50.9 Iron deficiency anemia, unspecified
CPT/HCPCS: C1713; J0690; J1170; J1650; J2270; J2405; J2543; J3010; J7030; J7050

== ENCOUNTER → 2016-09-30 | Outpatient (CLI) | payer MEDICARE, OTHER ==
[~2016-09-30] MED LIST: ATIVAN 0.5MG0.5 MG PO; COLACE100 MG PO; DICYCLOMINE HCL20 MG PO; DULCOLAX10 MG R; FLONASE 50 MCG/16 GM NOSE; HALDOL PO; HYDROCODON-ACE1 EAC4 PO; K-TAB ER20 MEQ PO; LASIX40 MG PO; LEVSIN/SL0.125 MG SL; LIPITOR20 M1 PO; LOPRESSOR25 MG PO; MORPHINE 20MG/ML PO; NITROSTAT0.4 MG SL; PLAVIX75 MG PO; TYLENOL650 MG R; VIIBRYD40 MG PO; VITAMIN B-1000 MCG/M IM; VITAMIN D35000 UNI1 PO; VOLTAREN 1% GE100 GM TOP; XANAX0.25 MG PO; XARELTO15 MG PO
--- NOTE | 2016-10-04 12:12 | NUR ---
UZIEL De Guzman informed me that patient will be going to [facility] in [place] on hospice now due to her decline in health. 930 Called EMS and set up an ambulance to transfer pt at 1100. Informed BRANDEN Orlando on NTU and gave ambulance cert form to him. 945 Called [facility] and informed charge nurse of pick-up time. Also called Tina from [facility] to inform her. Faxed discharge [facility] to [facility]. 1015 Talked with Brian, pt's son, about insurance coverage again, had question about if this home was a certified Medicare hospice facility. UZIEL De Guzman informed him it is and talked about coverage. 1025 Asked pt's nurse while going into her room to make sure family and pt knew ambulance is coming at 1100. Patient discharged to [facility] on hospice care around 1100. UZIEL internal control consultant TH.
== END | disposition disaster alternative care site (69) ==
LOC: GAMB 14:02
DX: S79.912A Unspecified injury of left hip, initial encounter (principal); M25.552 Pain in left hip
CPT/HCPCS: A0425; A0428